=== PATIENT | male | born 1960 | race African-American/Black ===

== ENCOUNTER 2016-12-07 09:03 | Inpatient (IN) ==
--- NOTE | 2016-12-07 09:45 | PROVIDER DOCUMENTATION ---
HPI-General Adult - General Chief Complaint: Flank Pain Stated Complaint: BILA SIDE PAIN,HIGH BLOOD SUGAR Time Seen by Provider: 12/07/16 09:28 Source: patient Allergies/Adverse Reactions: Patient Allergies Allergy/AdvReac Type Severity Reaction Status Date / Time No Known Allergies Allergy Verified 12/07/16 10:06 Home Medications: Home Medication List Medication Instructions Recorded Confirmed Last Taken Type Amlodipine Besylate [Norvasc] 5 mg PO DAILY 12/07/16 12/07/16 12/07/16 08:00 History Insulin Glargine [Lantus] 100 unit SQ DAILY 12/07/16 12/07/16 12/05/16 08:00 History LISINOpril [Prinivil] 40 mg PO DAILY 12/07/16 12/07/16 12/07/16 08:00 History Metformin [Glucophage] 500 mg PO DAILY 12/07/16 12/07/16 12/07/16 08:00 History - History of Present Illness -Gen Adult Nature of Presenting Problems: Patient is a 56 y/o M that presents to the ER with bilateral flank pain, chest pain, and elevated blood sugar x 2 months. patient reports symptoms getting worse. denies n/v/d, fever/chills, or cough. patient denies also shortness of breath or dizziness but has had generalized weakness Location of Pain/Injury: reports: upper body Pain Radiation: reports: no radiation Quality of Pain: reports: dull Severity: reports: mild Onset/Duration: reports: gradual, other (2 months) Timing: reports: still present, constant Context/Activities at Onset: reports: none Modifying Factors: improves with: nothing Associated Symptoms: reports: chest pain. denies: back/neck pain, diarrhea, dizziness, fever/chills, genitourinary problems, nausea, shortness of breath, vomiting Similar Symptoms Previously?: No Recently seen or treated by another doctor?: No Review of Systems - Adult - REVIEW OF SYSTEMS - ADULT Constitutional: denies: chills, fever Eyes: denies: decreased vision, blurred vision, double vision Ears, Nose, Mouth & Throat: denies: ear discharge, ear pain, epistaxis, sinus problem, throat pain Cardiovascular: reports: chest pain. denies: palpitations, syncope Respiratory: denies: cough, shortness of breath, wheezing Gastrointestinal: reports: abdominal pain. denies: diarrhea, nausea, vomiting Genitourinary: reports: flank pain. denies: dysuria, frequency Musculoskeletal: reports: muscle weakness. denies: joint pain, joint swelling Integumentary: reports: no symptoms reported Neurological: reports: no symptoms reported Psychiatric: reports: no symptoms reported Endocrine: reports: no symptoms reported Hematologic/Lymphatic: reports: no symptoms reported Allergic/Immunologic: reports: no symptoms reported All Other Systems: Reviewed and Negative Past History - Adult - PAST MEDICAL HISTORY-ADULT Review of Records: reports: Nursing Assessment Review, Medications Reviewed Cardiovascular: reports: HTN Neurological: reports: Seizures/Epilepsy Endocrine/Immune: reports: Diabetes - PRIOR SURGERIES/PROCEDURES Surgical/Procedure History: reports: cholecystectomy, other (stent placed in pancrease in february 2014) - IMMUNIZATION STATUS Childhood Immunizations: See Nurse Assessment Flu Vaccine: See Nurse Assessment - FAMILY HISTORY Family History: reviewed, not pertinent - SOCIAL HISTORY Smoking: cigarettes, less than 1 pack/day Substance Use: marijuana Living Situation: family Physical Exam-General - PHYSICAL EXAM-ADULT Initial Vital Signs Reviewed: Yes - CONSTITUTIONAL General Appearance: alert, no apparent distress - EYES Eyes: PERRL/EOMI, pink conjunctivae - HEAD, EARS, NOSE, MOUTH & THROAT HENMT: normocephalic/atraumatic, moist mucous membranes, normal ENT inspection - NECK Neck: full range of motion, normal inspection - RESPIRATORY Respiratory: lungs clear, normal breath sounds, no respiratory distress, no accessory muscle use - CARDIOVASCULAR Cardiovascular: regular rate, rhythm, no edema, no JVD - GASTROINTESTINAL (ABDOMEN) Abdominal Exam: normal bowel sounds, non tender, soft, no organomegaly, no pulsatile mass - MUSCULOSKELETAL Back Exam: no CVA tenderness, no vertebral tenderness Extremity: normal range of motion, normal inspection, no pedal edema, no calf tenderness - SKIN Integumentary: normal color, warm/dry - NEUROLOGIC Neurologic: grossly normal, no motor/sensory deficits - PSYCHIATRIC Psych/Mental Status: normal mood/affect, normal thought content, normal thought process, oriented x 3 Progress - PLAN OF CARE/RESULTS Progress/Plan/Lab Results: plan of care-labs, ekg Vital Signs Temp Pulse Resp BP Pulse Ox 12/07/16 09:05 97.7 F 99 H 20 157/102 100 No Known Allergies Allergy (Verified 12/07/16 10:06) Amlodipine Besylate [Norvasc] 5 mg PO DAILY 12/07/16 Insulin Glargine [Lantus] 100 unit SQ DAILY 12/07/16 LISINOpril [Prinivil] 40 mg PO DAILY 12/07/16 Metformin [Glucophage] 500 mg PO DAILY 12/07/16 Dietary Diet NPO Start Noreen Dec 07 928 I&O 12/06/16 12/07/16 12/08/16 06:59 06:59 06:59 Output Total 50 Balance -50 Laboratory 12/07/16 12/07/16 12/07/16 10:09 10:09 10:09 WBC 7.70 RBC 3.69 L Hgb 10.8 L Hct 30.6 L MCV 82.9 MCH 29.3 MCHC 35.3 RDW Std Deviation 12.2 Plt Count 188 MPV 11.6 H Immature Gran % (Auto) 0.0 Neut % (Auto) 72.5 Lymph % (Auto) 20.5 Bladen % (Auto) 5.8 Eos % (Auto) 0.9 Baso % (Auto) 0.3 Immature Gran # (Auto) 0.00 Neut # (Auto) 5.58 Lymph # (Auto) 1.58 Bladen # (Auto) 0.45 Eos # (Auto) 0.07 Baso # (Auto) 0.02 Sodium 130 L Potassium 4.3 Chloride 92 L Carbon Dioxide 17 L Anion Gap 21 BUN 16 Creatinine 0.8 Estimated GFR/1.73 m2 > 60 BUN/Creatinine Ratio 20 Glucose 592 H* Calculated Osmolality 289 Calcium 9.5 Total Bilirubin 0.23 AST 16 ALT 14 Alkaline Phosphatase 71 Total Protein 7.2 Albumin 3.6 Globulin 3.6 Albumin/Globulin Ratio 1.0 Amylase 169 Lipase 561 H Urine Source Urine Color Urine Clarity Urine pH Ur Specific [place] Urine Protein Urine Ketones Urine Blood Urine Nitrite Urine Bilirubin Urine Urobilinogen Urine Microscopic RBC Urine WBC Urine Microscopic WBC Ur Epithelial Cells Urine Bacteria Urine Glucose Plasma/Serum Ethyl Alc 12/07/16 09:39 WBC RBC Hgb Hct MCV MCH MCHC RDW Std Deviation Plt Count MPV Immature Gran % (Auto) Neut % (Auto) Lymph % (Auto) Bladen % (Auto) Eos % (Auto) Baso % (Auto) Immature Gran # (Auto) Neut # (Auto) Lymph # (Auto) Bladen # (Auto) Eos # (Auto) Baso # (Auto) Sodium Potassium Chloride Carbon Dioxide Anion Gap BUN Creatinine Estimated GFR/1.73 m2 BUN/Creatinine Ratio Glucose Calculated Osmolality Calcium Total Bilirubin AST ALT Alkaline Phosphatase Total Protein Albumin Globulin Albumin/Globulin Ratio Amylase Lipase Urine Source CLEAN CATCH Urine Color STRAW Urine Clarity CLEAR Urine pH 5.5 Ur Specific [place] 1.010 Urine Protein 100 A Urine Ketones 15 A Urine Blood MODERATE A Urine Nitrite NEGATIVE Urine Bilirubin NEGATIVE Urine Urobilinogen 0.2 Urine Microscopic RBC 10-20 A Urine WBC NEGATIVE Urine Microscopic WBC <10 Ur Epithelial Cells <10 Urine Bacteria 1+ Urine Glucose >=1000 A Plasma/Serum Ethyl Alc Orders Category Date Time Status FSBS [Finger Stick Blood Sugar (ED)] DIRECTED Care 12/07/16 12:40 Active Saline Loc DIRECTED Care 12/07/16 09:29 Active NPO Diet 12/07/16 09:29 Active AMYLASE [CHEM] Stat Lab 12/07/16 10:09 Completed CBC WITH ELECTRONIC DIFF [HEME] Stat Lab 12/07/16 10:09 Completed COMPREHENSIVE METABOLIC PANEL [CHEM] Stat Lab 12/07/16 10:09 Completed ETOH [ALCOHOL BLOOD] Stat Lab 12/07/16 10:09 Completed LIPASE [CHEM] Stat Lab 12/07/16 10:09 Completed URINE CULTURE [RM] Routine Lab 12/07/16 10:42 Received 0.9% Sodium Chloride Inj [Ns] 1,000 ml Med 12/07/16 11:43 Discontinued IV 999 mls/hr Insulin Human Regular [Humulin R] Med 12/07/16 11:43 Discontinued 10 unit IV NOW ONE - CONSULTS/PCP/HOSPITALIST Notification #1 *Consult/PCP/Hospitalist*: (hospitalist) Time Discussed: 12:50 Consult Disposition: Will see in ED, Admit Departure - Departure Time of Disposition Order: 12:50 DIAGNOSIS: Poorly controlled diabetes mellitus, Hyperglycemia, Pancreatitis Disposition: ADMITTED INPATIENT 09 Certified Medical Emergency: Emergent Condition: Stable - Critical Care Note Total Time (mins): 40 Critical Care Statement: This patient required my direct personal management to treat or rule out processes, the absence of which, could potentiallly result in sudden, clinically significant life or limb threatening deterioration. Attestation - Scribe Verification/Attestation Scribe:: Delfino Bess Acting as Scribe for:: Smiley Gary Scribe documention review:: This chart was documented by a scribe and accurately reflects the service the provider performed and the decisions made by the provider. Physician Attestation - Physician Attestation I, the provider, attest to the following statement:: Smiley Gary Physician documentation Attestation:: This documentation recorded by the scribe accurately reflects the service I personally performed and the decisions made by me.
[2016-12-07 10:02] LABS: URINE SOURCE CLEAN CATCH
[2016-12-07 10:31] LABS: MANUAL DIFF NEEDED? NO
[2016-12-07 10:33] LABS: URINE EPITHELIAL CELLS <10 /HPF (<10); URINE WBC <10 /HPF (<10)
[2016-12-07 10:41] LABS: BILIRUBIN URINE NEGATIVE (NEGATIVE); BLOOD URINE MODERATE (NEGATIVE); CLARITY CLEAR (CLEAR); COLOR STRAW; GLUCOSE URINE >=1000 mg/dL (NEGATIVE); LEUKOCYTES URINE NEGATIVE (NEGATIVE); NITRITE URINE NEGATIVE (NEGATIVE); PH URINE 5.5; PROTEIN URINE 100 mg/dL (NEGATIVE); URINE CULTURE NEEDED? YES; UROBILINOGEN URINE 0.2 EU/dL (0.2-1.0)
[2016-12-07 10:50] LABS: BASO% 0.3 % (0.0-0.8); EOS# 0.07 X1000 (0.0-0.7); EOS% 0.9 % (0.0-10.0); HEMATOCRIT 30.6 % (42.0-52.0); HEMOGLOBIN 10.8 g/dL (14.0-18.0); LYMPH# 1.58 X1000 (1.2-3.4); LYMPH% 20.5 % (20.5-51.1); MCH 29.3 PG (27-31); MCHC 35.3 g/dL (33-37); MCV 82.9 FL (81-99); MONO# 0.45 X1000 (0.11-0.59); MONO% 5.8 % (1.7-9.3); MPV 11.6 FL (7.4-10.4); NEUT% 72.5 % (42.2-75.2); PLT 188 X1000 (130-400); RBC 3.69 XMIL (4.7-6.1)
[2016-12-07 11:18] LABS: AGAP 21; ALBUMIN 3.6 g/dL (3.5-5.0); ALKALINE PHOSPHATASE 71 U/L (32-122); AMYLASE 169 U/L (20-200); BUN 16 mg/dL (8-22); CALCIUM 9.5 mg/dL (8.8-10.2); CHLORIDE 92 mmol/L (98-107); COSMO 289; GOT 16 U/L (10-34); GPT 14 U/L (10-44); POTASSIUM 4.3 mmol/L (3.5-5.1); SODIUM 130 mmol/L (136-145); TCO2 17 mmol/L (25-35); TOTAL BILIRUBIN 0.23 mg/dL (0.20-1.00); TOTAL PROTEIN 7.2 g/dL (6.3-8.3)
[2016-12-07 11:23] LABS: LIPASE 561 U/L (13-60)
[2016-12-07] MEDS ORDERED: HUMULIN R IV ONE (11:43)
[2016-12-07] MEDS ORDERED: NS 1,000 ML IV ONE (11:43)
[2016-12-07] MEDS ORDERED: ATIVAN IV PRN (13:40)
--- NOTE | 2016-12-07 14:24 | Diag Imaging Result Document ---
PROCEDURE NAME: CHEST-2 VIEWS - 12/07/2016 TWO VIEWS THE CHEST: FINDINGS: There is no evidence of acute cardiac or pulmonary disease. Compared to 01/16/2016, there has been no significant change in the appearance of the chest. IMPRESSION: No acute disease.
--- NOTE | 2016-12-07 14:35 | HISTORY AND PHYSICAL ---
CHIEF COMPLAINT: Abdominal pain. HISTORY OF PRESENT ILLNESS: Mr. Singh is a 56-year-old male with a history of alcohol dependence, hypertension, alcohol withdrawal seizures in the past, uncontrolled diabetes, marijuana dependence, who presents to the ER today with 2-3 months of abdominal pain, which has been worsening over the past few days. Mr. Singh is a fairly poor historian and is unable to give a precise history; however, he states that over the past few months he has been hurting and over the past few days he has had severe enough pain to come to the ER. He describes the pain as left upper quadrant and sharp in nature, radiating to the right side of his abdomen. It is not associated with spontaneous nausea and vomiting, but any time he tries to the eat he throws up. He reports drinking 4 tall boy beers a day. His states that his last drink was around a week ago. He denies any fever, chills, cough or congestion, no lower extremity edema, no orthopnea. He came to the ER today for evaluation. His lipase was noted to be 561. The rest of his labs were largely unremarkable with the exception of blood sugar of 592 with an elevated anion gap and acidemia. We are currently evaluating for DKA; however, he is hemodynamically stable at this time. He is now going to be admitted for further treatment and evaluation of alcoholic pancreatitis. PAST MEDICAL HISTORY: 1. Alcohol dependence. 2. Marijuana dependence. 3. Hypertension. 4. Poorly controlled diabetes. 5. Medical noncompliance. PAST SURGICAL HISTORY: He has had a cholecystectomy and pancreatic duct stent in the past. SOCIAL HISTORY: Patient is single. He has 1 daughter. He lives with his brother. He drinks 4 beers a day. He smokes marijuana, exact amount unknown. FAMILY HISTORY: Noncontributory. REVIEW OF SYSTEMS: Ten point review of systems obtained and found to be negative with the exception of the HPI. HOME MEDICATIONS: Norvasc 5 mg daily, Lantus 100 units subcu daily, Prinivil 40 mg daily, metformin 500 mg p.o. daily. ALLERGIES: No known drug allergies. PHYSICAL EXAMINATION: VITAL SIGNS: Blood pressure is 157/102, heart rate 99, respiratory rate 20, O2 saturation 100% on room air. Temperature is 97.7 degrees. GENERAL: This is a chronically ill and disheveled appearing 56-year-old male, lying in hospital bed. No acute distress. NEUROLOGIC: The patient is awake, alert, and oriented. He follows commands without focal deficits. HEENT: Head is atraumatic, normocephalic. His pupils are equal, round, reactive to light. Oral mucosa is dry. Trachea is midline. CHEST: Clear to auscultation bilaterally. CV: Regular rate and rhythm. S1-S2 is noted. GASTROINTESTINAL: Left upper quadrant tenderness to palpation. The belly is overall soft, nondistended, hypoactive bowel sounds. EXTREMITIES: Diminished pulses. No edema, clubbing or cyanosis. DIAGNOSTIC DATA: WBC 7.7, hemoglobin 10.8, hematocrit 30.6, platelet count 188,000. Sodium 130, potassium 4.3, chloride 92, CO2 17, anion gap 21, BUN 16, creatinine 0.8, glucose 592. LFTs within normal limits. Lipase 561. UA is negative for urinary tract infection, but there is greater than 1000 glucose and 15 ketones. Alcohol level was 0. ASSESSMENT AND PLAN: 1. Alcoholic pancreatitis: Patient will be admitted to the floor with telemetry. We will keep him NPO and be aggressive with IV fluid hydration. We will check a lipid panel and a CT of the abdomen and pelvis. Add IV pain medication and trend his lipase on a daily basis. 2. Hyperglycemia, rule out diabetic ketoacidosis: When the patient arrived and had labs at 10 o'clock this morning, he was acidemic with an elevated anion gap and a glucose of 592. The assessment could be made of DKA; however, he has had have fluid resuscitation since then, so we will get an ABG now to rule out his acid-base balance and check a BMP in a few hours. He has been given IV insulin in the ER. We will add pattern sugars and sliding scale insulin for now, check a hemoglobin A1c and monitor. 3. Anemia: Likely chronic, we are checking thyroid function and iron studies. We will treat accordingly. 4. Hypertension: His medications are on hold. We will add IV p.r.n.'s if needed. 5. Alcohol dependence/withdrawal syndrome: We will add a banana bag and p.r.n. Ativan as needed and monitor for DTs closely. 6. Polysubstance dependence: Patient has been highly advised to quit drinking alcohol and using marijuana, and we are going to check a drug screen, continue daily cessation counseling. 7. We will add b.i.d. Protonix for gastrointestinal prophylaxis and for likely gastritis associated with the pancreatitis and Lovenox for DVT prophylaxis. 8. Further recommendations to follow. Dictated by SAIDA Rodriguez for Troy Cleary MD
[2016-12-07 14:36] LABS: HEMOGLOBIN A1C 14.8 % (4.8-6.0)
[2016-12-07] MEDS ORDERED: APRESOLINE IV PRN (14:53)
--- NOTE | 2016-12-07 15:07 | Diag Imaging Result Document ---
PROCEDURE NAME: CT ABD/PELVIS W/ IV CONT ONLY - 12/07/2016 CT ABDOMEN AND PELVIS WITH IV CONTRAST: COMPARISON: 01/11/2016. FINDINGS: There are scattered calcified granulomata throughout the spleen. There has been a previous cholecystectomy. There are several calcifications mainly at the pancreatic head suggesting chronic pancreatitis. The pancreatic duct is also somewhat dilated. There appears to be a stent in the distalmost common bile duct extending from about the level of the ampulla distally into the duodenum. However, it is in stable position. There is perhaps very subtle stranding around the head of the pancreas. This could represent a component of acute pancreatitis. However, it is very mild if so. The appendix is normal. The kidneys appear normal. The urinary bladder is unremarkable. The remainder of the solid viscera of the abdomen and pelvis and the remainder of the GI tract is essentially unremarkable. No definite focal inflammatory change, free abdominal gas, or free fluid is identified. IMPRESSION: 1. Multiple calcifications in the pancreatic head compatible with chronic pancreatitis. 2. Very questionable and subtle stranding around the head of the pancreas. I suppose this could represent a component of mild acute pancreatitis. Please correlate clinically. 3. Other incidental/nonacute findings detailed above that are essentially stable.
[2016-12-07 15:31] LABS: ALLEN TEST YES; BE -7.2 mmoll (-3.0-3.0); BLOOD TYPE ARTERIAL; DRAW SITE R RADIAL; METHB 1.7 % (0.0-1.5); PCO2(98.6) 34 mmHg (35-45); PO2(98.6) 98 mmHg (60-100); SAMPLE BLOOD; SAO2 99.3 % (95.0-100.0); THB 11.1 g/dL (11.5-17.4); pH(98.6) 7.33 (7.35-7.45)
[2016-12-07 15:35] LABS: MODALITY ROOM AIR
[2016-12-07 15:46] LABS: UR AMPHETAMINES QUAL NONE DETECTED (NONE DETECT); UR BARBITUATES QUAL NONE DETECTED (NONE DETECT); UR BENZODIAZEPIN QUAL NONE DETECTED (NONE DETECT); UR CANNABINOIDS QUAL PRESUMPTIVE POSITIVE (NONE DETECT); UR COCAINE QUAL NONE DETECTED (NONE DETECT); UR METHADONE QUAL NONE DETECTED (NONE DETECT); UR OPIATES QUAL NONE DETECTED (NONE DETECT); UR OXYCODONE QUAL NONE DETECTED (NONE DETECT); UR PCP QUAL NONE DETECTED (NONE DETECT)
[2016-12-07] MEDS ORDERED: FLUZONE QUAD 2016-2017 SYRINGE IM ONE (16:00)
[2016-12-07 16:28] LABS: AGAP 19; BUN 15 mg/dL (8-22); CALCIUM 9.5 mg/dL (8.8-10.2); CHLORIDE 100 mmol/L (98-107); COSMO 284; POTASSIUM 3.8 mmol/L (3.5-5.1); SODIUM 136 mmol/L (136-145); TCO2 17 mmol/L (25-35)
[2016-12-07 16:31] LABS: HDL 53 mg/dL (35-55); LDL 76 mg/dL; TRIGLYCERIDES 176 mg/dL (39-160); VLDL 35 mg/dL
[2016-12-07] MEDS: PROTONIX IV SCH (16:55)
[2016-12-07] MEDS: M.V.I.-12 10 ML, FOLIC ACID 1 MG, MAGNESIUM SULFATE 1 GM, THIAMINE 100 MG in NS 1,000 ML IV SCH (16:55)
[2016-12-07] MEDS: SODIUM CHLORIDE 0.9% INJ SCH (16:55)
[2016-12-07] MEDS: NS 1,000 ML IV SCH (17:05)
[2016-12-07] MEDS: MORPHINE IV PRN ×2 (18:31→23:02)
[2016-12-07] MEDS: HUMALOG SUBQ SCH ×2 (18:37→23:51)
[2016-12-08] MEDS: NS 1,000 ML IV SCH ×3 (01:52→08:48)
[2016-12-08] MEDS: SODIUM CHLORIDE 0.9% INJ SCH ×2 (01:55→13:44)
[2016-12-08] MEDS: PROTONIX IV SCH ×2 (01:55→13:44)
[2016-12-08 06:15] LABS: IRON SATURATION 23 %; TIBC 203 ug/dL
[2016-12-08 06:19] LABS: AGAP 21; BUN 12 mg/dL (8-22); CHLORIDE 104 mmol/L (98-107); COSMO 283; LIPASE 153 U/L (13-60); SODIUM 140 mmol/L (136-145); TCO2 15 mmol/L (25-35); TOTAL IRON 46 ug/dL (53-167); UNBOUND IRON 157 ug/dL (112-346)
[2016-12-08] MEDS: HUMALOG SUBQ SCH ×4 (06:36→20:09)
[2016-12-08 06:38] LABS: FERRITIN 1302 ng/mL (30-400)
[2016-12-08] MEDS: MORPHINE IV PRN ×2 (08:14→18:44)
[2016-12-08] MEDS: LOVENOX SUBQ SCH (08:15)
[2016-12-08] MEDS ORDERED: SODIUM BICARBONATE 8.4% IV ONE (10:09)
[2016-12-08] MEDS: 1/2 NS 1,000 ML IV SCH (11:22)
[2016-12-08] MEDS: M.V.I.-12 10 ML, FOLIC ACID 1 MG, MAGNESIUM SULFATE 1 GM, THIAMINE 100 MG in NS 1,000 ML IV SCH ×2 (13:55→15:55)
--- NOTE | 2016-12-08 16:22 | PROGRESS NOTE ---
DATE: 12/08/2016 SUBJECTIVE: This patient states that he is feeling much better, he is not complaining of belly pain at this moment. He is hungry and thirsty, I will put this patient on a clear liquid diet. I will also stop the normal saline and I will put this patient on half NS. OBJECTIVE: Vital Signs: Temperature 98.6, pulse 103, respiratory rate 20, blood pressure 120/77, oxygen saturation 100% on room air. HEENT: Head normocephalic. No trauma. PERRLA. Neck: Supple. No JVD. No masses. Central trachea. Chest: Clear to auscultation. No wheezing. No rales. Abdomen: Soft, nontender, nondistended. No hepatosplenomegaly. Cardiovascular: RRR. No murmurs. Tachycardic. Extremities: No edema. No clubbing. No cyanosis. Neurological: The patient is alert and oriented x3. No focal deficits. LABORATORY: Sodium 140, potassium 4, chloride 104, bicarbonate 15, BUN 12, creatinine 0.7, glucose 168, calcium 9. Lipase 153. ASSESSMENT AND PLAN: 1. Alcoholic pancreatitis. This patient is feeling better. I will put this patient on clear liquid diet and I will switch the hydration from normal saline to half normal saline. Lipase is much better today. We will continue to monitor. 2. Type 2 diabetes. The blood sugar is better controlled. Continue to monitor. At the moment of the admission, this patient was acidotic. This patient is still acidotic. I will start him on a diet and also I will give him a dose of bicarbonate. I will ask also for a BMP. He is not complaining of any pain or having any kind of symptoms at this moment. 3. Anemia, likely chronic. Likely secondary to alcohol abuse. 4. Hypertension. His blood pressure is controlled. We will continue with the same medications and p.r.n. if needed. 5. Alcohol dependence/withdrawal syndrome. This patient has p.r.n. Ativan and we will monitor this patient for DTs closely. 6. Polysubstance dependence. Patient has been highly advised against drinking alcohol and using marijuana. Continue with daily cessation education. 7. Gastrointestinal prophylaxis. Continue with proton pump inhibitors and deep vein thrombosis prophylaxis. Continue with Lovenox.
[2016-12-08 16:53] LABS: AGAP 16; BUN 9 mg/dL (8-22); CALCIUM 8.4 mg/dL (8.8-10.2); CHLORIDE 100 mmol/L (98-107); COSMO 269; POTASSIUM 3.6 mmol/L (3.5-5.1); SODIUM 133 mmol/L (136-145); TCO2 17 mmol/L (25-35)
[2016-12-09] MEDS: 1/2 NS 1,000 ML IV SCH ×5 (04:23→23:23)
[2016-12-09] MEDS: MORPHINE IV PRN ×4 (04:23→20:46)
[2016-12-09 06:18] LABS: MANUAL DIFF NEEDED? NO
[2016-12-09] MEDS: SODIUM CHLORIDE 0.9% INJ SCH (06:22)
[2016-12-09] MEDS: HUMALOG SUBQ SCH ×4 (06:22→20:38)
[2016-12-09] MEDS: PROTONIX IV SCH ×2 (06:22→18:43)
[2016-12-09 06:40] LABS: BASO% 0.1 % (0.0-0.8); EOS# 0.06 X1000 (0.0-0.7); EOS% 0.8 % (0.0-10.0); HEMATOCRIT 26.8 % (42.0-52.0); HEMOGLOBIN 9.4 g/dL (14.0-18.0); IMM GRAN# 0.02 X1000 (0.0-0.04); IMM GRAN% 0.3 % (0.0-0.5); LYMPH# 0.79 X1000 (1.2-3.4); LYMPH% 11.1 % (20.5-51.1); MCH 29.3 PG (27-31); MCHC 35.1 g/dL (33-37); MCV 83.5 FL (81-99); MONO# 0.71 X1000 (0.11-0.59); MPV 11.2 FL (7.4-10.4); NEUT% 77.7 % (42.2-75.2); PLT 116 X1000 (130-400); RBC 3.21 XMIL (4.7-6.1)
[2016-12-09 06:45] LABS: AGAP 14; BUN 7 mg/dL (8-22); CALCIUM 7.9 mg/dL (8.8-10.2); CHLORIDE 102 mmol/L (98-107); COSMO 270; LIPASE 34 U/L (13-60); POTASSIUM 3.4 mmol/L (3.5-5.1); SODIUM 134 mmol/L (136-145); TCO2 18 mmol/L (25-35)
[2016-12-09] MEDS ORDERED: KLOR-CON PO ONE (08:17)
[2016-12-09] MEDS: LOVENOX SUBQ SCH (09:16)
[2016-12-09] MEDS: VITAMIN B-1 PO SCH (10:37)
[2016-12-09] MEDS: LANTUS SUBQ SCH (10:38)
[2016-12-09] MEDS ORDERED: NS 500 ML ONE (11:41)
--- NOTE | 2016-12-09 12:12 | PROGRESS NOTE ---
DATE: 12/09/2016 SUBJECTIVE: This patient states that he is feeling much better. He is not complaining of belly pain at this moment. He is tolerating p.o. The blood sugar is uncontrolled. I will put this patient on Lantus 25 units today and we will continue to monitor the blood sugar. Also I will stop the banana bag and I will put this patient on thiamine daily. The urine culture showed yeast. I will repeat that. OBJECTIVE: Vital Signs: Temperature 99.8 degrees, pulse 100, respiratory rate 18, blood pressure 148/89, O2 saturation 100% on room air. HEENT: Head normocephalic. No trauma. PERRLA. Neck: Supple. No JVD. No masses. Central trachea. Chest: Clear to auscultation. No wheezing. No rales. Abdomen: Soft, nontender, nondistended. No hepatosplenomegaly. Cardiovascular: RRR. No murmurs. Tachycardic. Extremities: No edema. No clubbing. No cyanosis. Neurological: The patient is alert and oriented x3. No focal deficits. LABORATORY: WBC 7.1, hemoglobin 9.4, hematocrit 26.8, platelets 116,000. Sodium 134, potassium 3.4, chloride 102, bicarbonate 18. BUN 7, creatinine 0.5. Glucose 175. Calcium 7.9 Magnesium 2.1. ASSESSMENT AND PLAN: 1. Alcoholic pancreatitis resolved, this patient is getting better and he is tolerating diet, we will continue with fluids and pain control. 2. Uncontrolled diabetes. This patient had more than 25 units of sliding scale yesterday. I will put this patient on his home medication Lantus 25 daily and I will monitor. The metabolic acidosis is getting much better. 3. Anemia, likely chronic and secondary to alcohol abuse. 4. Hypertension. The blood pressure is controlled. We will continue with the same medications. 5. Alcohol dependence, withdrawal syndrome. This patient has p.r.n. Ativan. We will monitor closely for DTs. I will put this patient also on thiamine. 6. Urine culture that showed yeast. I will repeat this. Probably this is contamination. 7. Polysubstance dependence. Patient has been highly advised against drinking alcohol and using marijuana. Continue with daily cessation education. 8. GI prophylaxis. Continue with PPI. 9. DVT prophylaxis. Continue with Lovenox.
[2016-12-10] MEDS: MORPHINE IV PRN (00:55)
[2016-12-10] MEDS: 1/2 NS 1,000 ML IV SCH (05:26)
[2016-12-10] MEDS: SODIUM CHLORIDE 0.9% INJ SCH (05:26)
[2016-12-10] MEDS: PROTONIX IV SCH (05:26)
[2016-12-10 06:25] LABS: BASO% 0.2 % (0.0-0.8); EOS# 0.06 X1000 (0.0-0.7); HEMOGLOBIN 10.6 g/dL (14.0-18.0); IMM GRAN# 0.02 X1000 (0.0-0.04); IMM GRAN% 0.3 % (0.0-0.5); LYMPH# 0.43 X1000 (1.2-3.4); LYMPH% 6.9 % (20.5-51.1); MANUAL DIFF NEEDED? YES; MCH 29.3 PG (27-31); MCHC 35.3 g/dL (33-37); MCV 82.9 FL (81-99); MONO# 0.41 X1000 (0.11-0.59); MONO% 6.5 % (1.7-9.3); MPV 11.5 FL (7.4-10.4); NEUT% 85.1 % (42.2-75.2); PLT 125 X1000 (130-400); RBC 3.62 XMIL (4.7-6.1)
[2016-12-10] MEDS ORDERED: INSULIN PEN NEEDLES ONE (06:25)
[2016-12-10 06:43] LABS: AGAP 13; BUN 8 mg/dL (8-22); CALCIUM 8.1 mg/dL (8.8-10.2); CHLORIDE 101 mmol/L (98-107); COSMO 266; LIPASE 27 U/L (13-60); POTASSIUM 3.9 mmol/L (3.5-5.1); SODIUM 132 mmol/L (136-145); TCO2 18 mmol/L (25-35)
[2016-12-10] MEDS: HUMALOG SUBQ SCH (06:46)
[2016-12-10 07:29] LABS: LYMPHS 7 % (21-51); MONO 6 % (1-9)
[2016-12-10 07:54] VITALS: BP 146/84
[2016-12-10] MEDS ORDERED: NS IV ONE (08:05)
[2016-12-10] MEDS ORDERED: POTASSIUM PHOSPHATE IV ONE (08:05)
[2016-12-10] MEDS ORDERED: NS 1,000 ML IV SCH (08:15)
[2016-12-10] MEDS: LANTUS SUBQ SCH (10:16)
[2016-12-10] MEDS: VITAMIN B-1 PO SCH (10:16)
[2016-12-10] MEDS: LOVENOX SUBQ SCH (10:16)
--- NOTE | 2016-12-11 17:20 | DISCHARGE SUMMARY ---
ADMISSION DATE: 12/07/2016 DISCHARGE DATE: 12/10/2016 SUBJECTIVE: This patient looks better today but he wants to go home, he has been having low grade fever and I told him to stay just 1 more day to do some more studies but he refuses and he decided to leave [facility]. OBJECTIVE: Vital Signs: Temperature 100.9 degrees, pulse 107, respiratory rate 18, blood pressure 146/82, O2 saturation 100% on room air. HEENT: Head normocephalic. No trauma. PERRLA. Neck: Supple. No JVD. No masses. Central trachea. Chest: Clear to auscultation. No wheezing. No rales. Abdomen: Soft, nontender, nondistended. No hepatosplenomegaly. Cardiovascular: RRR. No murmurs. Tachycardic. Extremities: No edema. No clubbing. No cyanosis. Neurological: The patient is alert and oriented x3. He looks anxious today. HOSPITAL COURSE: This patient was admitted on 12/07/2016 with the diagnosis of alcoholic pancreatitis. This patient is a 56 years old male with a history of alcohol dependence, hypertension, alcohol withdrawal seizure in the past and uncontrolled diabetes, marijuana dependence as well. He is a poor historian and he is unable to give a precise history. However he states that he has been having for the past few months epigastric pain and right upper quadrant pain, associated with vomiting mostly when he eat. At the moment of admission his blood sugar was 592 and he was on metabolic acidosis. He was evaluated because he presented with DKA but it was corrected at the emergency department with IV fluids. He was admitted to the floor with telemetry and he was improving on a daily basis. He started having low-grade fever and even though we did have any source of infection will continue to treat him with IV fluid and support medications. He decided to leave [place] today. He states that he will continue with his home medications.
== END 2016-12-10 10:36 | disposition left against medical advice (07) | DRG 439 ==
LOC: ED 09:03 → 4N 14:06
PROVIDERS: ATTEND Internal Medicine
DX: K86.0 Alcohol-induced chronic pancreatitis (principal); F10.239 Alcohol dependence with withdrawal, unspecified; E11.65 Type 2 diabetes mellitus with hyperglycemia; I10 Essential (primary) hypertension; F17.210 Nicotine dependence, cigarettes, uncomplicated; F12.20 Cannabis dependence, uncomplicated; D64.9 Anemia, unspecified; Z79.899 Other long term (current) drug therapy; Z79.4 Long term (current) use of insulin; Z79.84 Long term (current) use of oral hypoglycemic drugs; Z91.19 Patient's noncompliance with other medical treatment and regimen
CPT/HCPCS: 71020; 74177; 80048; 80053; 80061; 81001; 82009; 82150; 82607; 82728; 82746; 82805; 82948; 83036; 83540; 83550; 83690; 83735; 84100; 84439; 85025; 87088; C9113; G0480; J1650; J1815; J2060; J2270; J3411; J3475; J7030; J7040; Q9967; 80320; 80324; 80345; 80346; 80349; 80353; 80358; 80361; 80365; 83992; S0164

== ENCOUNTER 2016-12-24 20:29 | Inpatient (IN) ==
[2016-12-24] MEDS ORDERED: NS 1,000 ML IV ONE ×2 (20:33→22:41)
[2016-12-24] MEDS ORDERED: HUMULIN R IV ONE ×3 (20:33→22:41)
--- NOTE | 2016-12-24 20:40 | PROVIDER DOCUMENTATION ---
HPI-Neurological Disorder <Nila PerezKrystal - Last Filed: 12/24/16 21:00> - General Source: EMS <Rey Callahan - Last Filed: 12/24/16 22:27> - General Source: EMS - History of Present Illness-Neuro Onset/Duration: reports: just prior to arrival Timing: reports: still present Context: reports: impaired speech, falling Approximate time patient was last seen normal?: 19:37 Character of Altered Mental Status: reports: disoriented, confused, trouble concentrating Any recent trauma/injury?: reports: minor, other (lt knee) Character of Deficits: reports: decreased ability to stand, decreased ability to walk New weakness or altered sensation location:: reports: general (diffuse) Cognitive Baseline: alert, oriented x3 Associated Symptoms: reports: confusion, weakness. denies: short of breath Similar Symptoms Previously?: Yes Recently seen or treated by another doctor?: No <Declan New - Last Filed: 12/25/16 21:41> - General Stated Complaint: slurred speech Time Seen by Provider: 12/24/16 20:32 Allergies/Adverse Reactions: Patient Allergies Allergy/AdvReac Type Severity Reaction Status Date / Time No Known Allergies Allergy Verified 12/24/16 21:32 Home Medications: Home Medication List Medication Instructions Recorded Confirmed Last Taken Type Home Meds Unobtainable 12/24/16 12/24/16 Unknown History - History of Present Illness-Neuro Nature of Presenting Problem: family called 911 due pt became confuse w/hi bs ,,pt was in a chair and fell foeward w/ams ,no loc ,no seizures....pt on arrival having incoherent speech .. (Declan New) Review of Systems - Adult - REVIEW OF SYSTEMS - ADULT ROS:: unobtainable per condition Constitutional: reports: see HPI <Declan New - Last Filed: 12/25/16 21:41> Past History - Adult - PAST MEDICAL HISTORY-ADULT Review of Records: reports: Old Records Reviewed, Medications Reviewed Cardiovascular: reports: HTN Respiratory: reports: COPD Gastrointestinal: reports: GERD Neurological: reports: Seizures/Epilepsy Psychiatric: reports: anxiety Endocrine/Immune: reports: Diabetes - PRIOR SURGERIES/PROCEDURES Surgical/Procedure History: reports: cholecystectomy, other (stent placed in pancrease in february 2014) - IMMUNIZATION STATUS Childhood Immunizations: See Nurse Assessment Flu Vaccine: See Nurse Assessment - FAMILY HISTORY Family History: reviewed, not pertinent - SOCIAL HISTORY Provider spent 3-5 mins advising pt. on dangers of tobacco.: Discussed manners to quit use, and f/u contacts for add'l counseling. Substance Use: none presently/history of abuse Living Situation: family <ShaqDeclan Fraser - Last Filed: 12/25/16 21:41> Physical Exam- Neurological - Physical Exam-Neuro General Appearance: appears well, alert, mild distress, anxious (moderate-severe ), lethargic, slow to respond. negative: no apparent distress, obtunded, combative Head Injury: no evidence of injury Respiratory: respiratory distress (mild), rhonchi (bilateral), other (congestion ). negative: chest non-tender, lungs clear, normal breath sounds, wheezing Cardiovascular: normal peripheral pulses, tachycardia. negative: regular rate, rhythm Extremity: other (LUE jerking for approxiamtely 1 minute after return from CT.) . 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 negative: normal mood/affect, oriented x 3 - Glascow Coma Scale Total Glascow Score: 11 <Rey Callahan - Last Filed: 12/24/16 22:27> - Physical Exam-Neuro Initial Vital Signs Reviewed: Yes <ShaqDeclan Fraser - Last Filed: 12/25/16 21:41> Progress <Nila Perez - Last Filed: 12/24/16 21:00> - XRAY 1 XRAY: Bilateral XRAY Study: Chest Impression: See EMR Report XRAY Interpretation: No acute findings - CT/MRI 1 CT Study: Cervical Spine, Head Impression: See EMR Report CT Results: Negative - CONSULTS/PCP/HOSPITALIST Notification #1 *Consult/PCP/Hospitalist*: Dr. Norman (Hospitalist) Time Discussed: 22:28 Consult Disposition: Admit <Rey Callahan - Last Filed: 12/24/16 22:27> <Declan New M - Last Filed: 12/25/16 21:41> - PLAN OF CARE/RESULTS Progress/Plan/Lab Results: 2049: Pt actively seizing after CT scan and 6 mg of Ativan were given, pt vomited and suction was performed. Total seizure was approx. 8 minutes. ( Nila Perez) Pt was admitted on 12/07/2014 for similar symptoms. Pt has hx of alcoholism and alcoholic related health issues. Vital Signs - 24 hr 12/24/16 12/24/16 12/24/16 20:50 21:26 21:57 Temperature 97.9 F 97.9 F Pulse Rate 98 H 88 98 H Respiratory 16 20 20 Rate Blood Pressure 180/106 161/91 155/101 O2 Sat by Pulse 100 100 100 Oximetry 12/24/16 22:25 Temperature Pulse Rate 98 H Respiratory 15 Rate Blood Pressure 157/95 O2 Sat by Pulse 100 Oximetry Orders Category Date Time Status Cardiac Monitoring DIRECTED Care 12/24/16 20:32 Active Finger Stick Blood Sugar (ED) DIRECTED Care 12/24/16 20:32 Active Oxygen Therapy- ED Nursing DIRECTED Care 12/24/16 20:32 Active Saline Loc NOW Care 12/24/16 20:32 Active CHEST-PORTABLE [RAD] Stat Exams 12/24/16 20:31 Taken HEAD/C-SPINE W/O CONTRAST [CT] Stat Exams 12/24/16 20:31 Taken ABG [RESP] Routine Lab 12/24/16 22:15 Completed ALCOHOL BLOOD Stat Lab 12/24/16 21:21 Completed CBC WITH ELECTRONIC DIFF [HEME] Stat Lab 12/24/16 21:21 Completed CK PROFILE [SP CHEM] Stat Lab 12/24/16 21:21 Completed COMPREHENSIVE METABOLIC PANEL [CHEM] Stat Lab 12/24/16 21:21 Completed LACTATE, PLASMA [CHEM] Stat Lab 12/24/16 21:21 Completed PROTIME WITH INR [COAG] Stat Lab 12/24/16 21:21 Completed PTT [COAG] Stat Lab 12/24/16 21:21 Completed TROPONIN T Stat Lab 12/24/16 21:21 Completed URINALYSIS W/POSS RFLX CULT [URINALYSIS] Stat Lab 12/24/16 21:05 Completed URINE DRUG SCREEN Stat Lab 12/24/16 21:05 Completed 0.9% Sodium Chloride Inj [Ns] 1,000 ml Med 12/24/16 20:33 Discontinued IV 999 mls/hr Clonidine [Catapres] Med 12/24/16 22:26 Discontinued 0.1 mg PO NOW ONE Insulin Human Regular [Humulin R] Med 12/24/16 20:33 Discontinued 15 unit IV NOW ONE Insulin Human Regular [Humulin R] Med 12/24/16 22:26 Discontinued 15 unit IV NOW ONE Lorazepam [Ativan] Med 12/24/16 20:42 Discontinued 2 mg .ROUTE .STK-MED ONE Lorazepam [Ativan] Med 12/24/16 20:51 Discontinued 2 mg .ROUTE .STK-MED ONE Lorazepam [Ativan] Med 12/24/16 21:35 Discontinued 2 mg IV NOW ONE Lorazepam [Ativan] Med 12/24/16 21:36 Discontinued 2 mg IV NOW ONE Lorazepam [Ativan] Med 12/24/16 21:36 Discontinued 2 mg IV NOW ONE Mvi [M.v.i.-12] 10 ml Med 12/24/16 22:25 Active Folic Acid 1 mg Magnesium Sulfate 1 gm Thiamine 100 mg 0.9% Sodium Chloride Inj [Ns] 1,000 ml IV NOW Pulse Oximetry Stat Oth 12/24/16 20:32 Active EKG [EKG] Stat Ther 12/24/16 20:31 Ordered EKG [EKG] Stat Ther 12/24/16 20:32 Ordered Laboratory Tests 12/24/16 12/24/16 12/24/16 21:05 21:05 21:21 WBC RBC Hgb Hct MCV MCH MCHC RDW Std Deviation Plt Count MPV Immature Gran % (Auto) Neut % (Auto) Lymph % (Auto) [place] % (Auto) Eos % (Auto) Baso % (Auto) Immature Gran # (Auto) Neut # (Auto) Lymph # (Auto) [place] # (Auto) Eos # (Auto) Baso # (Auto) PT INR PTT (Actin FS) Specimen Type Sample Site pH pCO2 pO2 HCO3 Base Excess Oxyhemoglobin ABG O2 Sat (Calculated) ABG O2 Saturation ABG Carboxyhemoglobin ABG Methemoglobin Viktor Test A-a O2 Difference Total Hemoglobin Lactate Liter Flow Blood Gas Modality FiO2 % Sodium Potassium Chloride Carbon Dioxide Anion Gap BUN Creatinine Estimated GFR/1.73 m2 BUN/Creatinine Ratio Glucose Calculated Osmolality Calcium Total Bilirubin AST ALT Alkaline Phosphatase Creatine Kinase Troponin T Total Protein Albumin Globulin Albumin/Globulin Ratio Plasma Lactate Urine Source CATH Urine Color STRAW Urine Turbidity CLEAR Urine pH 6.0 Ur Specific [place] 1.025 Urine Protein 70 A Ur Glucose (Stick) >1000 A Ur Ketones (Stick) NEGATIVE Urine Blood TRACE A Urine Nitrite NEGATIVE Urine Bilirubin NEGATIVE Urobilinogen Dipstick NORMAL Urine Leukocytes NEGATIVE Urine WBC (Auto) <10 Urine RBC (Auto) <10 U Epithel Cells (Auto) <10 Urine Bacteria (Auto) NEGATIVE Urine Opiates Screen NONE DETECTED Ur Oxycodone Screen NONE DETECTED Ur Methadone, Qual NONE DETECTED Ur Barbiturates Screen NONE DETECTED Ur Phencyclidine Scrn NONE DETECTED Ur Amphetamines Screen NONE DETECTED U Benzodiazepines Scrn NONE DETECTED Urine Cocaine Screen NONE DETECTED U Cannabinoids Screen PRESUMPTIVE POSITIVE A Plasma/Serum Ethyl Alc 12/24/16 12/24/16 12/24/16 21:21 21:21 21:21 WBC 5.48 RBC 3.49 L Hgb 10.2 L Hct 28.9 L MCV 82.8 MCH 29.2 MCHC 35.3 RDW Std Deviation 12.3 Plt Count 206 MPV 10.9 H Immature Gran % (Auto) 0.4 Neut % (Auto) 68.8 Lymph % (Auto) 23.0 [place] % (Auto) 6.4 Eos % (Auto) 0.9 Baso % (Auto) 0.5 Immature Gran # (Auto) 0.02 Neut # (Auto) 3.77 Lymph # (Auto) 1.26 [place] # (Auto) 0.35 Eos # (Auto) 0.05 Baso # (Auto) 0.03 PT INR PTT (Actin FS) Specimen Type Sample Site pH pCO2 pO2 HCO3 Base Excess Oxyhemoglobin ABG O2 Sat (Calculated) ABG O2 Saturation ABG Carboxyhemoglobin ABG Methemoglobin Viktor Test A-a O2 Difference Total Hemoglobin Lactate Liter Flow Blood Gas Modality FiO2 % Sodium 129 L Potassium 3.0 L Chloride 88 L Carbon Dioxide 28 Anion Gap 13 BUN 10 Creatinine 1.0 Estimated GFR/1.73 m2 > 60 BUN/Creatinine Ratio 10 Glucose 876 H* Calculated Osmolality 301 Calcium 8.8 Total Bilirubin 0.21 AST 12 ALT 8 L Alkaline Phosphatase 88 Creatine Kinase 36 Troponin T Total Protein 6.4 Albumin 2.7 L Globulin 3.7 Albumin/Globulin Ratio 0.7 Plasma Lactate 3.2 H Urine Source Urine Color Urine Turbidity Urine pH Ur Specific [place] Urine Protein Ur Glucose (Stick) Ur Ketones (Stick) Urine Blood Urine Nitrite Urine Bilirubin Urobilinogen Dipstick Urine Leukocytes Urine WBC (Auto) Urine RBC (Auto) U Epithel Cells (Auto) Urine Bacteria (Auto) Urine Opiates Screen Ur Oxycodone Screen Ur Methadone, Qual Ur Barbiturates Screen Ur Phencyclidine Scrn Ur Amphetamines Screen U Benzodiazepines Scrn Urine Cocaine Screen U Cannabinoids Screen Plasma/Serum Ethyl Alc 12/24/16 12/24/16 12/24/16 21:21 21:21 22:15 WBC RBC Hgb Hct MCV MCH MCHC RDW Std Deviation Plt Count MPV Immature Gran % (Auto) Neut % (Auto) Lymph % (Auto) [place] % (Auto) Eos % (Auto) Baso % (Auto) Immature Gran # (Auto) Neut # (Auto) Lymph # (Auto) [place] # (Auto) Eos # (Auto) Baso # (Auto) PT 9.3 INR 0.91 PTT (Actin FS) 22.3 Specimen Type ARTERIAL Sample Site R RADIAL pH 7.45 pCO2 46 H pO2 389 H HCO3 30.5 H Base Excess 7.2 H Oxyhemoglobin 96.3 ABG O2 Sat (Calculated) 13.4 L ABG O2 Saturation 99.7 ABG Carboxyhemoglobin 1.50 ABG Methemoglobin 1.9 H Viktor Test YES A-a O2 Difference 267.0 Total Hemoglobin 9.1 L Lactate 3.20 H Liter Flow 12.0 Blood Gas Modality NRB FiO2 % 100.0 Sodium Potassium Chloride Carbon Dioxide Anion Gap BUN Creatinine Estimated GFR/1.73 m2 BUN/Creatinine Ratio Glucose Calculated Osmolality Calcium Total Bilirubin AST ALT Alkaline Phosphatase Creatine Kinase Troponin T < 0.010 Total Protein Albumin Globulin Albumin/Globulin Ratio Plasma Lactate Urine Source Urine Color Urine Turbidity Urine pH Ur Specific [place] Urine Protein Ur Glucose (Stick) Ur Ketones (Stick) Urine Blood Urine Nitrite Urine Bilirubin Urobilinogen Dipstick Urine Leukocytes Urine WBC (Auto) Urine RBC (Auto) U Epithel Cells (Auto) Urine Bacteria (Auto) Urine Opiates Screen Ur Oxycodone Screen Ur Methadone, Qual Ur Barbiturates Screen Ur Phencyclidine Scrn Ur Amphetamines Screen U Benzodiazepines Scrn Urine Cocaine Screen U Cannabinoids Screen Plasma/Serum Ethyl Alc (Rey Callahan) Departure <Nila Perez - Last Filed: 12/24/16 21:00> - Departure Time of Disposition Order: 22:28 Certified Medical Emergency: Emergent <Rey Callahan - Last Filed: 12/24/16 22:27> - Departure Time of Disposition Order: 19:00 Certified Medical Emergency: Emergent <Declan New - Last Filed: 12/25/16 21:41> - Departure DIAGNOSIS: Hyperglycemia, Poor compliance with medication Altered mental status Qualifiers: Altered mental status type: unspecified Qualified Code(s): R41.82 - Altered mental status, unspecified Alcohol withdrawal seizure Qualifiers: Complication of substance-induced condition: with unspecified complication Qualified Code(s): F10.239 - Alcohol dependence with withdrawal, unspecified Hypertension Qualifiers: Hypertension type: unspecified secondary hypertension Qualified Code(s): I15.9 - Secondary hypertension, unspecified Disposition: ADMITTED INPATIENT 09 Condition: Stable Attestation - Scribe Verification/Attestation Scribe:: Rey Callahan Acting as Scribe for:: Declan New Scribe documention review:: This chart was documented by a scribe and accurately reflects the service the provider performed and the decisions made by the provider. <Rey Callahan - Last Filed: 12/24/16 22:27> Physician Attestation
[2016-12-24] MEDS ORDERED: ATIVAN ONE ×2 (20:42→20:51)
[2016-12-24 21:28] LABS: MANUAL DIFF NEEDED? NO
[2016-12-24 21:31] LABS: URINE CULTURE NEEDED? NO; URINE MICRO REVIEW NEEDED? NO; URINE SOURCE CATH
[2016-12-24 21:35] LABS: BASO% 0.5 % (0.0-0.8); EOS# 0.05 X1000 (0.0-0.7); EOS% 0.9 % (0.0-10.0); HEMATOCRIT 28.9 % (42.0-52.0); HEMOGLOBIN 10.2 g/dL (14.0-18.0); IMM GRAN# 0.02 X1000 (0.0-0.04); IMM GRAN% 0.4 % (0.0-0.5); LYMPH# 1.26 X1000 (1.2-3.4); MCH 29.2 PG (27-31); MCHC 35.3 g/dL (33-37); MCV 82.8 FL (81-99); MONO# 0.35 X1000 (0.11-0.59); MONO% 6.4 % (1.7-9.3); MPV 10.9 FL (7.4-10.4); NEUT% 68.8 % (42.2-75.2); PLT 206 X1000 (130-400); RBC 3.49 XMIL (4.7-6.1)
[2016-12-24] MEDS ORDERED: ATIVAN IV ONE ×3 (21:35→21:36)
[2016-12-24 21:37] LABS: BILIRUBIN URINE NEGATIVE (NEGATIVE); BLOOD URINE TRACE (NEGATIVE); COLOR STRAW; GLUCOSE URINE >1000 mg/dL (NEGATIVE); LEUKOCYTES URINE NEGATIVE (NEGATIVE); NITRITE URINE NEGATIVE (NEGATIVE); PROTEIN URINE 70 mg/dL (NEGATIVE); SP GRAVITY URINE 1.025; TURBIDITY URINE CLEAR (CLEAR); UROBILINOGEN URINE NORMAL (NORMAL)
[2016-12-24 21:38] LABS: UR EPITHELIAL CELLS <10 /HPF (<10); URINE BACTERIA NEGATIVE /HPF; URINE RBC <10 /HPF (<10); URINE WBC <10 /HPF (<10)
[2016-12-24 21:58] LABS: INR 0.91; PROTIME 9.3 Seconds (9.2-11.7); PTT 22.3 Seconds (22.0-36.0)
[2016-12-24 22:06] LABS: UR AMPHETAMINES QUAL NONE DETECTED (NONE DETECT); UR BARBITUATES QUAL NONE DETECTED (NONE DETECT); UR BENZODIAZEPIN QUAL NONE DETECTED (NONE DETECT); UR CANNABINOIDS QUAL PRESUMPTIVE POSITIVE (NONE DETECT); UR COCAINE QUAL NONE DETECTED (NONE DETECT); UR METHADONE QUAL NONE DETECTED (NONE DETECT); UR OPIATES QUAL NONE DETECTED (NONE DETECT); UR OXYCODONE QUAL NONE DETECTED (NONE DETECT); UR PCP QUAL NONE DETECTED (NONE DETECT)
[2016-12-24 22:10] LABS: AGAP 13; ALBUMIN 2.7 g/dL (3.5-5.0); ALKALINE PHOSPHATASE 88 U/L (32-122); BUN 10 mg/dL (8-22); CALCIUM 8.8 mg/dL (8.8-10.2); CHLORIDE 88 mmol/L (98-107); CK PROFILE 36 U/L (24-204); COSMO 301; GOT 12 U/L (10-34); GPT 8 U/L (10-44); SODIUM 129 mmol/L (136-145); TCO2 28 mmol/L (25-35); TOTAL BILIRUBIN 0.21 mg/dL (0.20-1.00); TOTAL PROTEIN 6.4 g/dL (6.3-8.3)
[2016-12-24 22:22] LABS: ALLEN TEST YES; BE 7.2 mmoll (-3.0-3.0); BLOOD TYPE ARTERIAL; DRAW SITE R RADIAL; METHB 1.9 % (0.0-1.5); MODALITY NRB; O2(CT) 13.4 mL/dL (15.0-23.0); PCO2(98.6) 46 mmHg (35-45); PO2(98.6) 389 mmHg (60-100); SAMPLE BLOOD; SAO2 99.7 % (95.0-100.0); THB 9.1 g/dL (11.5-17.4); pH(98.6) 7.45 (7.35-7.45)
[2016-12-24] MEDS ORDERED: M.V.I.-12 10 ML, FOLIC ACID 1 MG, MAGNESIUM SULFATE 1 GM, THIAMINE 100 MG in NS 1,000 ML IV ONE (22:25)
[2016-12-24] MEDS ORDERED: CATAPRES PO ONE (22:26)
[2016-12-24] MEDS ORDERED: THIAMINE IM ONE (22:41)
[2016-12-24] MEDS ORDERED: NS + KCL 40 MEQ 1,000 ML IV ONE (23:03)
[2016-12-24 23:36] LABS: AMYLASE 74 U/L (20-200); LIPASE 97 U/L (13-60)
[2016-12-25] MEDS ORDERED: LANTUS SUBQ ONE (00:08)
[2016-12-25] MEDS ORDERED: NS 1,000 ML IV ONE (00:08)
[2016-12-25] MEDS ORDERED: D5 1/2 NS 1,000 ML IV ONE (00:08)
[2016-12-25] MEDS ORDERED: HUMALOG SUBQ SCH (00:15)
[2016-12-25] MEDS ORDERED: ZOFRAN IV PRN (00:36)
[2016-12-25] MEDS ORDERED: TYLENOL PR PRN (00:36)
[2016-12-25] MEDS: LOVENOX SUBQ SCH (01:10)
[2016-12-25 02:30] LABS: AGAP 11; BUN 8 mg/dL (8-22); CALCIUM 8.5 mg/dL (8.8-10.2); CHLORIDE 99 mmol/L (98-107); COSMO 282; MAGNESIUM 1.9 mg/dL (1.5-2.7); POTASSIUM 3.2 mmol/L (3.5-5.1); SODIUM 137 mmol/L (136-145); TCO2 27 mmol/L (25-35)
--- NOTE | 2016-12-25 03:44 | HISTORY AND PHYSICAL ---
DATE AND TIME OF HISTORY AND PHYSICAL: December 24, 2016 at 2300. CHIEF COMPLAINT: Altered mental status and slurred speech. HISTORY OF PRESENT ILLNESS: Mr. Singh is a 56-year-old -[place] male with a history of alcohol dependence, hypertension, uncontrolled diabetes mellitus, marijuana abuse, and history of alcohol withdrawal seizures in the past. The patient presented to the ER at approximately 8:30 tonight after the family called EMS and reported the patient was altered with slurred speech. They also reported that he was attempting to get up out of a chair and fell forward, was stumbling around and fell though they denied any loss of consciousness or any seizure on the scene. The patient was most recently admitted to [facility] on December 07, 2016 for alcoholic pancreatitis and hyperglycemia. Though before he was able to be decreased, the patient did decide to leave against medical advice. Upon presentation in the ER today, patient was found to be lethargic only responding to painful stimuli. He also had nonreactive pupils and a fixed deviated gaze to the right. During the patient's CT of head and C-spine, he did have a reported 0-yurcac-aais seizure though there was only 1 episode of this. The patient was given a total of 6 mg of Ativan during this time. Laboratory results showed a serum glucose of 876 though his bicarbonate was 28 and anion gap was 13. Patient's arterial blood gases showed a pH of 7.4 with a pCO2 of 46 and an HCO3 of 30.5. CT of the head and C-spine without contrast showed no acute intracranial abnormalities. Only noted were chronic ischemic changes. Unfortunately, at this time no family has been present in the ER with the patient to provide any assistance with history of present illness. At this time, we will admit the patient for further treatment and evaluation of his encephalopathy, hyperglycemia, and fluid volume depletion. REVIEW OF SYSTEMS: A 14-point review of systems was conducted with the patient and all were negative except for pertinent positives mentioned in above HPI. Review of systems and assessment were limited due to the patient's current condition. PAST MEDICAL HISTORY: 1. Alcohol dependence. 2. Marijuana dependence. 3. Hypertension. 4. Poorly controlled diabetes mellitus. 5. Medical noncompliance. 6. History of previous alcohol withdrawal seizures. 7. Alcoholic pancreatitis. PAST SURGICAL HISTORY: 1. Cholecystectomy. 2. Pancreatic duct stent placement in the past. SOCIAL HISTORY: This was obtained from a previous H and P. Patient is reportedly single. He does have 1 daughter though currently lives with his brother. He previously reported that he drinks 4 beers a day and smokes marijuana. It is unknown whether or not the patient smokes cigarettes though the ER staff did find chewing tobacco in the patient's mouth upon examination. FAMILY HISTORY: At this time, we are unable to obtain any past family medical history due to the patient's current condition. ALLERGIES: No known drug allergies. HOME MEDICATIONS: These were also unable to be obtained and verified though on the patient's previous admission in November 2016 he did take Norvasc 5 mg daily, Lantus 100 units subcutaneous daily, Prinivil 40 mg daily, and metformin 500 mg p.o. daily. DIAGNOSTIC DATA: Laboratory results: White blood cell count 5.4. Hemoglobin 10.2. Hematocrit 28.9. Platelet count is 206. PT 9.3. INR 0.9. PTT 22.3. Sodium 129. Potassium 3.0. Chloride 88. Bicarbonate 28. Anion gap is 13. Creatinine 1.0. GFR greater than 60. Glucose 876. Hemoglobin A1c is 15. Serum osmolality is 321. Calcium 8.8. Phosphorus 3.1. Magnesium 2. Liver function tests within normal limits. CK 36. Troponin less than 0.01. Amylase 74. Lipase 97. Plasma lactate was 3.2. Albumin is 2.7. Arterial blood gases were obtained on nonrebreather at 100% FIO2: pH was 7.45, pCO2 of 46, pO2 HCO3 was 30.5 with a base excess of 7.2, O2 saturation was 99.7. Urinalysis was positive for protein, trace blood, and greater than 1000 glucose, was otherwise normal. Urine drug screen was positive for marijuana and serum alcohol was zero. EKG showed normal sinus rhythm at a rate of 97 with a prolonged QT, QTc was 495. A chest x-ray showed no acute abnormality though we are awaiting the official radiology overread. A CT head without contrast showed no acute intracranial abnormality though there were chronic ischemic changes noted. CT C-spine showed no fracture or acute abnormalities. PHYSICAL EXAMINATION: VITAL SIGNS: Temperature 97.9, heart rate 98, respirations 15, blood pressure 157/95, oxygen saturation is 100% nonrebreather at 15 L. GENERAL: Mr. Singh is a 56-year-old -[place] male who is resting in the ER stretcher. He does not appear to be in any acute distress though is very lethargic upon examination. HEENT: Head is atraumatic, normocephalic. Pupils are equal, round, and 3 mm bilaterally though were nonreactive. The patient does have a fixed gaze to the right. He also has nystagmus noted upon examination in both eyes. Oral mucosa was slightly dry. Oropharynx was clear. NECK: Supple. Trachea midline. No JVD noted. No carotid bruits noted upon auscultation bilaterally. CARDIOVASCULAR: Patient has normal S1, S2. No murmurs, gallops, or rubs appreciated with a regular rate and rhythm. PULMONARY: Patient has symmetrical chest expansion bilaterally. Lung sounds are clear to auscultation in bilateral full condon. ABDOMEN: Soft, nondistended, and no facial grimacing or guarding was noted upon palpation. Bowel sounds were present in all 4 quadrants, were normoactive. GENITOURINARY: Patient does have a Davidson catheter in place at this time and does have clear yellow urine noted to the Davidson drainage bag. EXTREMITIES: No cyanosis, clubbing or edema noted. Pedal pulses were 3 plus bilaterally. Radial pulses were 3 plus bilaterally as well. Patient does have movement noted in all extremities except for his right lower extremity though there does appear to be weakness and /or limited movement in his right upper extremity compared to left. INTEGUMENTARY: The patient's skin is pink, warm, dry, and intact. No lesions or sores noted except for the patient does have an approximately nickel-sized abrasion noted to his left knee though no active bleeding noted. Patient also has decreased skin turgor noted as well. NEUROLOGICAL: Patient is lethargic at this time and is only responsive to painful stimuli though his neurological exam at this time is very limited due to his current condition. It does appear that the patient does have a right deviated gaze with nystagmus noted. When painful stimuli is implemented with a sternal rub, patient does appear to have more muscle strength and movement in his left upper extremity when compared to his right. Upon painful stimulation, the patient did withdraw from pain in his left lower extremity though had no movement in his right lower extremity. ASSESSMENT AND PLAN: 1. Encephalopathy. At this time, this is of uncertain etiology though there is a high suspicion for a possible stroke. This could have been precipitated by his hyperglycemic state and/or hypertension due to the patient's blood pressure was elevated at 180/106 upon arrival. Though we cannot rule out the possibility of Neftali's palsy contributing to his right- sided weakness and right lower extremity paralysis. It also is uncertain whether or not his seizure may have been related to a possible stroke or alcohol withdrawal given his history of this. Another differential diagnosis is Wernicke's encephalopathy given his history of alcohol abuse. At this time, we will admit the patient to the ICU. We will monitor him very closely as well as do q.2 hour neuro checks. We have placed a consult with Neurology as well. We will place an order for MRI of the brain without contrast in the morning as well as MRA of the neck with contrast and we will continue to follow him closely and also monitor him for seizures as well. 2. Nonketotic hyperosmolar hyperglycemia. The patient was given a total of 25 units of insulin IV in the ER which over a period of time did bring his glucose down to 333. Due to this, we did decide not to place the patient on an insulin drip. We will implement sliding scale low dose lispro insulin q.4 hours. We have also given him Lantus 50 units subcutaneous. We will monitor his fingerstick blood sugars q.4 hours. We have given him fluid resuscitation with now a total of 3 L of normal saline 1 of which did have 40 mEq of KCl. We will continue with normal saline at 250 mL per hour though once the patient's glucose is less than 250 we will transition him to D5 half-normal saline at 125 mL per hour and we will continue to monitor closely. The patient's hemoglobin A1c was 15. 3. Fluid volume depletion. We will continue with treatment as mentioned above for number 2 and continue to follow. 4. Hypertension. According to the patient's previous records, he did take Norvasc 5 mg once p.o. daily for this but at this time given his high suspicion for a possible stroke we will allow permissive hypertension and just monitor this closely. 5. History of alcohol abuse. We have an order for the patient to have 100 mg of thiamine IM as well as a banana bag and continue to monitor him closely for any other signs of withdrawal symptoms as well. 6. Tobacco abuse. ER staff did report they found a large amount of chewing tobacco in the patient's mouth. We will student counsellor the patient for the need to quit using tobacco products of any kind. Patient will be placed in ICU with telemetry. He will have vital signs q.1 hour per ICU protocol. We will do strict intake and output. We will implement aspiration precautions as well as seizure precautions. He will remain NPO at this time. We also did place orders for an echo as well as a speech evaluation. We will continue to monitor the patient's electrolytes closely with q.4 hour BMP, magnesium, and phosphorus collections and we will treat as necessary. GI prophylaxis at this time will be provided with Protonix 40 mg IV q.24 hours and DVT prophylaxis will be provided with Lovenox 40 mg subcutaneous q.24 hours and we will continue to monitor this patient very closely. Other orders and recommendations pending hospital course, diagnostic studies, and physician evaluation. CRITICAL CARE TIME: Approximately 45 minutes. Dictated by SAIDA Perez for Lazaro Norman MD MTDD
[2016-12-25] MEDS: ATIVAN IV PRN ×5 (03:52→20:23)
[2016-12-25] MEDS: HUMALOG SUBQ SCH ×7 (04:09→23:25)
[2016-12-25 05:25] LABS: ALLEN TEST YES; BE 4.2 mmoll (-3.0-3.0); BLOOD TYPE ARTERIAL; DRAW SITE R RADIAL; METHB 1.3 % (0.0-1.5); O2(CT) 12.5 mL/dL (15.0-23.0); PCO2(98.6) 48 mmHg (35-45); PO2(98.6) 63 mmHg (60-100); SAMPLE BLOOD; SAO2 95.7 % (95.0-100.0); THB 9.6 g/dL (11.5-17.4)
[2016-12-25 05:27] LABS: MODALITY ROOM AIR
[2016-12-25] MEDS: SODIUM CHLORIDE 0.9% INJ SCH (06:30)
[2016-12-25] MEDS: PROTONIX IV SCH (06:30)
[2016-12-25 06:53] LABS: MANUAL DIFF NEEDED? NO
[2016-12-25 07:10] LABS: BASO% 0.4 % (0.0-0.8); EOS# 0.08 X1000 (0.0-0.7); EOS% 0.7 % (0.0-10.0); HEMATOCRIT 26.4 % (42.0-52.0); HEMOGLOBIN 9.4 g/dL (14.0-18.0); IMM GRAN# 0.05 X1000 (0.0-0.04); IMM GRAN% 0.4 % (0.0-0.5); LYMPH# 2.14 X1000 (1.2-3.4); LYMPH% 18.9 % (20.5-51.1); MCH 29.3 PG (27-31); MCHC 35.6 g/dL (33-37); MCV 82.2 FL (81-99); MONO# 0.81 X1000 (0.11-0.59); MONO% 7.2 % (1.7-9.3); MPV 10.1 FL (7.4-10.4); NEUT% 72.4 % (42.2-75.2); PLT 225 X1000 (130-400); RBC 3.21 XMIL (4.7-6.1)
[2016-12-25 07:54] LABS: AGAP 10; BUN 7 mg/dL (8-22); CALCIUM 8.5 mg/dL (8.8-10.2); CHLORIDE 103 mmol/L (98-107); COSMO 276; POTASSIUM 2.9 mmol/L (3.5-5.1); SODIUM 139 mmol/L (136-145); TCO2 26 mmol/L (25-35)
--- NOTE | 2016-12-25 07:59 | Diag Imaging Result Document ---
PROCEDURE NAME: HEAD/C-SPINE W/O CONTRAST - 12/24/2016 CT HEAD AND C-SPINE WITHOUT CONTRAST: COMPARISON: 01/10/2016. FINDINGS: HEAD: There are stable bilateral cerebellar calcifications noted incidentally. There is no discrete intracranial mass, mass effect, or intracranial hemorrhage. There is no evidence of acute infarct given the limited sensitivity of CT versus MRI. There is bilateral maxillary and minimal ethmoid sinus mucosal disease. Surrounding soft tissues are grossly unremarkable, otherwise. The calvaria is intact. C-SPINE: The cervical spinal canal is congenitally somewhat narrow. There is a prominent central disk protrusion at the C3-4 level causing fairly severe central spinal stenosis and probably some degree of cord compression. This is of unknown acuity. It is probably, at least in part, chronic, however. There are also small broad-based disk bulges at C4-5 and C5-6 causing much milder central canal narrowing. There is no evidence of fracture, subluxation, or intrinsic osseous lesion, otherwise. Surrounding soft tissues are essentially unremarkable. IMPRESSION: 1. No evidence of acute intracranial pathology. 2. Degenerative disk disease at several cervical spine levels as described with a central disk protrusion at C3-4 causing fairly severe central spinal stenosis. This is of unknown acuity but, at least in part, probably chronic. Cervical spine MRI is recommended if not contraindicated to better evaluate the severity. 3. No evidence of fracture.
--- NOTE | 2016-12-25 09:17 | EKG Report ---
Test Performed on : 12/24/2016 9:07:03 PM Test Reason : stroke like symptoms Blood Pressure : / mmHG Vent. Rate : 097 BPM Atrial Rate : 097 BPM P-R Int : 178 ms QRS Dur : 082 ms QT Int : 390 ms P-R-T Axes : 067 034 061 degrees QTc Int : 495 ms Normal sinus rhythm. Prolonged QT Abnormal ECG When compared with ECG of 09-JAN-2016 22:27, No significant change was found Unconfirmed Result
[2016-12-25] MEDS ORDERED: D50W SYRINGE ONE ×2 (10:02→15:30)
--- NOTE | 2016-12-25 10:07 | Diag Imaging Result Document ---
PROCEDURE NAME: CHEST-PORTABLE - 12/24/2016 PORTABLE CHEST X-RAY, 12/24/2016: COMPARISON: 12/07/2016. FINDINGS: The lungs are normally expanded and clear. Heart size and mediastinal contours are normal. No pneumothorax or pleural effusion. IMPRESSION: Negative exam.
[2016-12-25 10:46] LABS: AGAP 12; BUN 6 mg/dL (8-22); CALCIUM 8.3 mg/dL (8.8-10.2); CHLORIDE 103 mmol/L (98-107); COSMO 274; POTASSIUM 2.5 mmol/L (3.5-5.1); SODIUM 140 mmol/L (136-145); TCO2 25 mmol/L (25-35)
--- NOTE | 2016-12-25 11:01 | Diag Imaging Result Document ---
PROCEDURE NAME: MRI BRAIN W/O CONTRAST - 12/25/2016 MRI BRAIN, 12/25/2016: COMPARISON: Head CT 12/24/2016. FINDINGS: The ventricles and sulci are normal in size and contour. No intracranial mass or hemorrhage. There are some signal abnormalities corresponding with dense calcifications in the dentate nuclei bilaterally. The appearance is nonspecific. There is only trace calcification in the basal ganglia. There is no restricted diffusion. IMPRESSION: No acute abnormality. Abnormal but nonspecific soft-tissue calcifications primarily in the dentate nuclei bilaterally. This would be an unusual appearance for Fahr disease, familial cerebral ferrocalcinosis. [facility]
--- NOTE | 2016-12-25 11:03 | Diag Imaging Result Document ---
PROCEDURE NAME: MRA NECK W/CONT - 12/25/2016 MR ANGIOGRAM OF THE NECK WITH INTRAVENOUS CONTRAST, 12/25/2016: COMPARISON: None. FINDINGS: The carotid artery systems are patent bilaterally. There is redundancy of the internal carotids bilaterally. No evidence of stenosis or aneurysm. The vertebrobasilar system is patent. The vertebral arteries are codominant. IMPRESSION: No acute disease.
[2016-12-25] MEDS ORDERED: ATIVAN IV ONE (11:23)
[2016-12-25] MEDS ORDERED: POTASSIUM CHLORIDE 20 MEQ/SWI 100 ML IV ONE (11:31)
[2016-12-25] MEDS ORDERED: D50W SYRINGE IV ONE ×2 (11:49→15:36)
[2016-12-25 14:39] LABS: AGAP 12; BUN 5 mg/dL (8-22); CALCIUM 8.4 mg/dL (8.8-10.2); CHLORIDE 108 mmol/L (98-107); COSMO 276; MAGNESIUM 2.1 mg/dL (1.5-2.7); POTASSIUM 3.1 mmol/L (3.5-5.1); SODIUM 141 mmol/L (136-145); TCO2 21 mmol/L (25-35)
[2016-12-25] MEDS ORDERED: D10W 1,000 ML IV SCH (16:00)
--- NOTE | 2016-12-25 17:47 | CONSULTATION ---
DATE OF CONSULTATION: 12/25/2016 HISTORY OF PRESENT ILLNESS: Mr. Singh is 56 years old and it sounds like he had a seizure witnessed here. The hospital chart records seizure witnessed while he was on his way to imaging or having imaging. In retrospect, he might have had seizure at home prior to arrival. He has not had any more definite clinical seizure noted since that incident on the way to imaging. Lab work in the computer showed glucose over 800. A1c 15%. WBC count was initially 5000, later 11,000. Sodium was 129. Urine drug screen was positive for cannabis and otherwise negative. Serum ethanol level was none. Noncontrast CT of the head was reported unremarkable. He is not able to provide history now. PHYSICAL EXAMINATION: On exam, he is initially asleep, and still. With moderate level of stimulation, he became alert, opened his eyes, looked at me, mumbled. When not vigorously stimulated, he quickly seemed back to sleep. He moved all limbs. When tested for tone, tone is equal in the limbs. He moved his right limbs more consistently and purposefully than the left. He has extensor plantar response bilaterally but more briskly on the left. Extraocular movements are full with passive head turning. When he was briefly alert, he moved his eyes spontaneously conjugately to the left and to the right. Corneal reflex is present bilaterally. Facial motility is diminished bilaterally but appears symmetric. Head and neck are unremarkable. There is no meningismus. Reflexes are absent at the knees and ankles, 1+ at the wrists. IMPRESSION/PLAN: Apparent seizure. The episode was not described more precisely but I suspect this was a generalized seizure. There is very minimal and inconsistent focal finding suggesting possible slight left hemiparesis but nothing reproducible on exam. Negative CT is reassuring. I believe that he has had MRI scan and I will check on that report when available. The etiology of seizure is not certain. I do not know if there is past history of seizure, or not. There is reported to be history of alcohol dependence and he presented at this time with no ethanol level detected. This raises the possibility of alcohol withdrawal seizure. His home medicine list is uncertain, if any. I do not know if he has benzodiazepines or any other medicine that might be associated with seizure either with intoxication or in withdrawal. He had significant elevated blood sugar and some other metabolic findings which might also contribute to seizure. I believe he has received lorazepam for seizure control and that appears to be effective to this point. I will check on the MRI report. Next step would be to consider EEG when practical. Thanks for asking me to see Francisco. MTDD
[2016-12-25] MEDS ORDERED: POTASSIUM PHOSPHATE 40 MMOL in NS 250 ML IV ONE (19:32)
[2016-12-25] MEDS ORDERED: M.V.I.-12 10 ML, MAGNESIUM SULFATE 2 GM, THIAMINE 100 MG, FOLIC ACID 1 MG in D5 NS 1,00... IV ONE (19:45)
[2016-12-25] MEDS ORDERED: ZYPREXA ZYDIS PRN (19:45)
[2016-12-25] MEDS: ATIVAN IV SCH ×2 (20:42→20:52)
[2016-12-25] MEDS: ATIVAN 20 MG in NS 190 ML IV SCH (20:43)
[2016-12-25] MEDS: D50W SYRINGE IV PRN (21:18)
--- NOTE | 2016-12-25 22:25 | PROGRESS NOTE ---
DATE: 12/25/2016 SUBJECTIVE: This is a 56-year-old, black male with history of alcohol dependency, hypertension, uncontrolled diabetes mellitus type 2 and marijuana use, with history of alcohol withdrawal seizures in the past. Patient presented to the emergency room approximately 0830 hours after the family called EMS. Reportedly, the patient had altered mental status, slurred speech. Also reported he was attempting to get up out of his chair and fell forward and was stumbling and fell, though they denied any loss of conscious or any seizures at the scene. The patient was most recently admitted to [facility] in 12/11/2016 for alcoholic pancreatitis and hyperglycemia, though before he was able to decrease, the patient did decide to leave against medical advice. Upon presentation in the emergency room on 12/24 yesterday, he was found to be lethargic, only responded to painful stimuli, Had nonreactive pupils, fixed deviated gaze to the right. During the patient patient's CT of the head and C-spine, he did have reported 8 minute long seizure, though there was only 1 episode of this. The patient was given total of 6 mg of Ativan during this time. LABORATORY RESULTS: Showed glucose of 876, though his bicarb was 28, anion gap was 13. Patient had arterial blood gases that showed pH 7.4, pCO2 46, bicarb was 30. IMAGING: CT of the head and C-spine without contrast showed no acute intracranial abnormalities. Only noted were some chronic old ischemic changes. Unfortunately at this time during this admission, there is no family to assist. PAST MEDICAL HISTORY: Family later showed up and corroborated that he has a long history of drinking and past medical history of: 1. Alcohol dependence. 2. Marijuana dependence. 3. Hypertension. 4. Poorly controlled diabetes mellitus type 2. 5. Medical noncompliance. 6. History of previous alcohol withdrawal seizures. 7. Alcoholic pancreatitis. PAST SURGICAL HISTORY: 1. Cholecystectomy. 2. Pancreatic duct stent placement in the past. OBJECTIVE: General: He is in the emergency room. He was sleepy. Now examined and reexamined again at 7 o'clock p.m. He is awake, he is agitated, confused, delirious. Vital signs: Temperature 98.3 degrees, pulse 100, respirations 20, blood pressure 150/85. HEENT: Pupils were reactive, equal. CVP less than 6 cm. Lungs: Clear in all lung condon. Cardiovascular: Regular rhythm and rate without murmur or S3. Abdomen: Soft. Skin: Warm and dry. Urine output was 2565 today, put out a little over a liter. LABORATORY: Reviewed. White count 11,320, hematocrit 26, platelet count 225,000. Chemistries: We did supplement his potassium and I think we will supplement with some K-Phos as well as phosphorus is a little low. Magnesium looks okay. Renal function looks good. We will start him on Ativan drip. ASSESSMENT AND PLAN: I suspect he is beginning to have delirium tremens. This may be initially just withdrawal, and I think returning to the delirium tremens.
[2016-12-26] MEDS: LOVENOX SUBQ SCH ×2 (00:30→23:36)
[2016-12-26] MEDS ORDERED: LOPRESSOR IV PRN (00:47)
[2016-12-26] MEDS ORDERED: CATAPRES-TTS-1 TD SCH (01:00)
[2016-12-26] MEDS: D50W SYRINGE IV PRN ×2 (01:44→01:46)
[2016-12-26] MEDS ORDERED: D50W SYRINGE IV PRN (03:23)
[2016-12-26] MEDS: PROTONIX IV SCH (03:45)
[2016-12-26] MEDS: SODIUM CHLORIDE 0.9% INJ SCH (03:45)
[2016-12-26] MEDS: HUMALOG SUBQ SCH ×6 (03:46→23:29)
[2016-12-26] MEDS: D10W 1,000 ML IV SCH ×2 (03:48→17:11)
--- NOTE | 2016-12-26 05:21 | ECHO REPORT ---
ORDER DATE: 12/25/2016 MEASUREMENTS: 1. Left ventricular end-diastolic 4.1, systolic diameter 2.4. 2. Posterior wall thickness 1.1. 3. Septal thickness 1.1. 4. Left atrium 4.2. 5. Aortic root 3.1. SUMMARY: 1. Adequate quality acoustic windows. 2. Aortic mitral, tricuspid and pulmonic valves are without evidence of structural abnormality. There is trace mitral regurgitation and trace tricuspid regurgitation. Estimated systolic PA pressure by Doppler is 37 mmHg. Aortic root is normal in size. 3. Normal left ventricle dimension as demonstrated. Estimated left ventricular ejection fraction appears to be approximately 65% to 70%. No regional wall motion abnormality is evident. Doppler suggests normal left ventricular diastolic function. Left atrium is mildly enlarged. Right atrium and right ventricle is normal in size with gross preserved right ventricular systolic performance. 4. No pericardial effusion. 5. Appearance of inferior vena cava suggests normal central venous pressure. CONCLUSIONS: 1. Trace tricuspid regurgitation with mild pulmonary hypertension suggested by Doppler 2. Normal left ventricular function without wall motion abnormality evident. 3. Mild left atrial enlargement.
--- NOTE | 2016-12-26 05:23 | EEG REPORT ---
DATE: 12/25/2016 EEG NUMBER: [id number] COMMENT: This is a digitally recorded EEG on a 56-year-old patient, done portably in the ICU. There is report of recent seizure. FINDINGS: This record is dominated by beta rhythm at low to medium amplitude, mostly 15 hertz occurring symmetrically across both hemispheres diffusely. There is polymorphic and rhythmic delta frontally bilaterally. No posterior dominant rhythm was identified. There is some movement and muscle contraction artifact which do not hinder interpretation. There was no variation to correlate with spontaneous drowsing or sleep. No definite epileptiform discharge was identified. INTERPRETATION: Beta rhythm is a typical benzodiazepine effect. The absence of epileptiform discharges on a single electroencephalogram does not exclude a clinical diagnosis of seizures. Background slowing is consistent with a diffuse encephalopathy and is nonspecific. [facility]
[2016-12-26] MEDS: ATIVAN 20 MG in NS 190 ML IV SCH ×2 (05:50→17:45)
[2016-12-26] MEDS: LABETALOL IV PRN ×2 (05:55→17:00)
[2016-12-26 06:12] LABS: BASO% 0.2 % (0.0-0.8); EOS# 0.05 X1000 (0.0-0.7); EOS% 0.2 % (0.0-10.0); HEMATOCRIT 29.1 % (42.0-52.0); HEMOGLOBIN 10.4 g/dL (14.0-18.0); IMM GRAN% 0.4 % (0.0-0.5); LYMPH# 1.93 X1000 (1.2-3.4); LYMPH% 7.9 % (20.5-51.1); MANUAL DIFF NEEDED? YES; MCH 29.6 PG (27-31); MCHC 35.7 g/dL (33-37); MCV 82.9 FL (81-99); MONO# 1.02 X1000 (0.11-0.59); MONO% 4.2 % (1.7-9.3); MPV 10.3 FL (7.4-10.4); NEUT% 87.1 % (42.2-75.2); PLT 204 X1000 (130-400); RBC 3.51 XMIL (4.7-6.1)
[2016-12-26 06:32] LABS: LYMPHS 7 % (21-51); MONO 4 % (1-9)
[2016-12-26 06:53] LABS: AGAP 11; BUN 4 mg/dL (8-22); CALCIUM 8.1 mg/dL (8.8-10.2); CHLORIDE 106 mmol/L (98-107); COSMO 275; POTASSIUM 3.3 mmol/L (3.5-5.1); SODIUM 140 mmol/L (136-145); TCO2 23 mmol/L (25-35)
--- NOTE | 2016-12-26 07:34 | PROGRESS NOTE ---
DATE: 12/26/2016 SUBJECTIVE: Mr. Singh required quite a bit of Ativan. He is in restraints. He was sleeping off and on. Sinus tachycardia. OBJECTIVE: Vital Signs: Afebrile. Temperature 99.2, pulse 94 to 110, respirations 17, blood pressure 182/94. HEENT: Pupils are equal. Neck: CVP less than 6 cm. Lungs: Clear in all lung condon. Cardiovascular: Regular rhythm and rate without murmur or S3. Abdomen: Soft. Skin: Warm and dry. Urine output was 1500 mL. Blood sugars 94 this morning. Labs from this morning white count 24,390, hematocrit 29, platelet count 204,000. ASSESSMENT AND PLAN: 1. Apparent seizure. I suspect generalized seizure, suspect related to alcohol withdrawal. He had some findings suggesting possible slight left hemiparesis. He appears to be moving both arms and legs fairly symmetrically. The MRI of the head did not suggest any new pathology. EEG done on 12/25: Beta rhythms, typical benzodiazepine effect. Absence of epileptiform discharges on a single EEG does not exclude clinical diagnosis of seizures. Background slowing consistent with diffuse encephalopathy and was nonspecific. Suspect alcohol withdrawals. Continue current management. He is on Ativan drip. 2. Diabetes mellitus type 2. Continue to follow sugars. He had some hypoglycemia so I believe he is on D10 at the present time. 3. Suspect some alcohol withdrawal seizures. 4. Alcohol and marijuana dependence. Appears to going into delirium tremens. Review of his orders. Not sure of the change on D10 at 85 mL an hour, clonidine patch 0.2 every 7 days, lorazepam drip, Protonix 40 mg IV q.24 hours, extra Ativan if needed, 4 mg IV p.r.n., up to 4 mg IV p.r.n., labetalol p.r.n. Need to check his electrolytes this morning and CBC was reviewed. Hematocrit stable at 29. White count did go up. Do not see any definite source of infection. Recheck chest x-ray.
--- NOTE | 2016-12-26 09:16 | Diag Imaging Result Document ---
PROCEDURE NAME: CHEST-PORTABLE - 12/26/2016 SINGLE FRONTAL RADIOGRAPH OF THE CHEST: COMPARISON: 12/24/2016. FINDINGS: Inspiration is suboptimal. The lungs remain grossly clear. Cardiac silhouette is approximately stable given differences in positioning and inspiration. IMPRESSION: Essentially stable chest.
[2016-12-26] MEDS: THERA M PLUS PO SCH (13:07)
--- NOTE | 2016-12-26 13:11 | PROGRESS NOTE ---
DATE: 12/26/2016 PATIENT LOCATION: ICU 4. Mr. Singh continues sedated with his prophylaxis for DTs. With moderately vigorous stimulation, he was awake, briefly alert, not attentive to my requests. He did not communicate with me directly. He mumbled but I did not understand his words. He used all limbs briefly, purposefully. When not vigorously stimulated, he seemed quickly back to sleep. MRI yesterday did not show evidence of acute infarction or other lesion. He has not had any more seizure or seizure-like behavior. His EEG showed prominent beta rhythm consistent with benzodiazepine on board, but no epileptiform discharge. I do not have any new suggestion from a neurologic standpoint. I would continue current management, continue prophylaxing DVTs, follow clinically. Depending on his clinical course, we might repeat EEG before discharge to see if there is a reason to consider adding medicine for seizure control. Thanks for allowing me to follow Mr. Singh.
[2016-12-26] MEDS: ATIVAN IV PRN (23:33)
[2016-12-27] MEDS: HUMALOG SUBQ SCH ×5 (03:18→20:37)
[2016-12-27] MEDS: PROTONIX IV SCH (03:18)
[2016-12-27] MEDS: D10W 1,000 ML IV SCH (03:18)
[2016-12-27] MEDS: SODIUM CHLORIDE 0.9% INJ SCH (03:18)
[2016-12-27] MEDS: ATIVAN 20 MG in NS 190 ML IV SCH ×2 (05:32→17:44)
[2016-12-27] MEDS ORDERED: NS 1,000 ML ONE (08:39)
[2016-12-27] MEDS ORDERED: HUMULIN R ONE (08:39)
[2016-12-27] MEDS: THERA M PLUS PO SCH (08:47)
[2016-12-27] MEDS: NS 1,000 ML IV SCH ×3 (09:02→23:35)
--- NOTE | 2016-12-27 09:34 | PROGRESS NOTE ---
DATE: 12/27/2016 SUBJECTIVE: He is more awake and cooperative. His mouth does feel dry. He feels like he is able to swallow. Still in 4 point restraints. OBJECTIVE: Vital signs: Temperature 98.0 degrees, pulse 92, respirations 16, blood pressure 172/82. HEENT: Pupils are equal and round. Neck: CVP less than 6 cm. Lungs: Clear in all lung condon. Cardiovascular: Regular rhythm and rate without murmur or S3. Abdomen: Soft. Skin: Warm and dry. Intake and output: Urine output was over 1000 mL. Input was 1000. LAB: White count 24,390, hematocrit 29, platelet count 204,000. Blood sugars 252, 186, 331. ASSESSMENT AND PLAN: 1. Appears to be alcohol withdrawal, delirium tremens. Requiring restraints but seems to be a little more cooperative. Continue Ativan. I do not see any evidence of current seizure activity. 2. Diabetes mellitus type 2. Continue to follow his sugars. They are running a little high so we will switch from D10 to normal saline. 3. Suspect alcohol withdrawal seizures. 4. Alcohol and marijuana dependence. We will discontinue D10 and go to D5 normal saline I believe and see how we do with that.
--- NOTE | 2016-12-27 11:33 | PROGRESS NOTE ---
DATE: 12/27/2016 Mr. Singh is more alert, following simple commands consistently, communicating more spontaneously. Speech remains dysarthric but can be understood. I did not find any definite focal deficit on a limited bedside exam. He has not had a definite further clinical seizure. I do not have any new suggestion from a neurologic standpoint. Thanks for allowing me to follow Mr. Singh. MTDD
[2016-12-27 11:35] LABS: AGAP 8; ALKALINE PHOSPHATASE 91 U/L (32-122); BUN 6 mg/dL (8-22); CALCIUM 7.7 mg/dL (8.8-10.2); CHLORIDE 103 mmol/L (98-107); COSMO 276; GOT 18 U/L (10-34); GPT 6 U/L (10-44); POTASSIUM 3.4 mmol/L (3.5-5.1); SODIUM 137 mmol/L (136-145); TCO2 26 mmol/L (25-35); TOTAL BILIRUBIN 0.29 mg/dL (0.20-1.00); TOTAL PROTEIN 4.6 g/dL (6.3-8.3)
[2016-12-27] MEDS: LABETALOL IV PRN (17:54)
[2016-12-27] MEDS: ATIVAN IV PRN (23:38)
[2016-12-28] MEDS: LOVENOX SUBQ SCH (01:26)
[2016-12-28] MEDS: HUMALOG SUBQ SCH ×6 (01:30→20:30)
[2016-12-28] MEDS: PROTONIX IV SCH (03:22)
[2016-12-28] MEDS: SODIUM CHLORIDE 0.9% INJ SCH (03:22)
[2016-12-28] MEDS: ATIVAN 20 MG in NS 190 ML IV SCH (05:21)
[2016-12-28 06:34] LABS: MANUAL DIFF NEEDED? NO
[2016-12-28 06:39] LABS: BASO% 0.2 % (0.0-0.8); EOS# 0.07 X1000 (0.0-0.7); EOS% 0.4 % (0.0-10.0); HEMATOCRIT 27.3 % (42.0-52.0); HEMOGLOBIN 9.4 g/dL (14.0-18.0); IMM GRAN# 0.05 X1000 (0.0-0.04); IMM GRAN% 0.3 % (0.0-0.5); LYMPH# 1.94 X1000 (1.2-3.4); MCH 29.1 PG (27-31); MCHC 34.4 g/dL (33-37); MCV 84.5 FL (81-99); MONO# 1.03 X1000 (0.11-0.59); MONO% 6.4 % (1.7-9.3); MPV 11.4 FL (7.4-10.4); NEUT% 80.7 % (42.2-75.2); PLT 190 X1000 (130-400); RBC 3.23 XMIL (4.7-6.1)
--- NOTE | 2016-12-28 07:43 | PROGRESS NOTE ---
DATE: 12/28/2016 SUBJECTIVE: Mr. Singh was resting, sleeping comfortably. Apparently when he is aroused, he is oriented x3. We will see if we can taper down the Ativan. He is able to swallow and hopefully we can move him to the floor soon. PHYSICAL EXAMINATION: Vital Signs: Temperature 98.2 degrees, pulse 96, respirations 13, blood pressure 134/68. Blood pressure ranged. It has been between 134-185/68-94. His urine output is good at 1 L. LABORATORY DATA: White count came down to 16,180, hematocrit 27, platelet count 190,000. Blood sugar 174, 168, and 118. ASSESSMENT AND PLAN: 1. Delirium tremens. Patient is more alert and follows simple commands consistently, and communicating well. Looks more comfortable. We will taper down on the Ativan and see if we can get him to eat and get some strength back. 2. Diabetes mellitus type 2. Sugar is under good control. 3. History of withdrawal seizures in the past. Aware. 4. Alcohol and marijuana dependence. 5. On review of orders, he is getting normal saline at 75 mL an hour. He has a clonidine patch, Protonix 40 mg intravenous every 24 hours so we will see about tapering him off the Ativan.
[2016-12-28] MEDS: THERA M PLUS PO SCH (08:41)
--- NOTE | 2016-12-28 10:43 | PROGRESS NOTE ---
DATE: 12/28/2016 Mr. Singh is awake and alert, more bright and attentive, more spontaneous today. He followed simple commands consistently. He carried on some conversation with me at the bedside. He has full visual condon tested grossly. He has good power in the limbs and strength seems symmetric on bedside testing in the arms. He did pretty well on [id number] testing bilaterally. There is some diffuse tremulousness. Neck is supple. I do not have any new thoughts or new suggestions today from a neurologic standpoint. Thanks for allowing me to follow Mr. Singh.
[2016-12-28] MEDS: ATIVAN IV PRN ×4 (12:07→23:00)
[2016-12-28] MEDS: NS 1,000 ML IV SCH ×2 (12:12→23:29)
[2016-12-29] MEDS: ATIVAN IV PRN ×2 (00:23→18:14)
[2016-12-29] MEDS: HUMALOG SUBQ SCH ×7 (00:28→23:52)
[2016-12-29] MEDS: LOVENOX SUBQ SCH (00:44)
[2016-12-29] MEDS: NS 1,000 ML IV SCH ×3 (04:43→23:05)
[2016-12-29] MEDS: SODIUM CHLORIDE 0.9% INJ SCH (04:46)
[2016-12-29] MEDS: PROTONIX IV SCH (04:46)
[2016-12-29] MEDS: D50W SYRINGE IV PRN (04:46)
[2016-12-29] MEDS ORDERED: LABETALOL IV PRN (09:24)
[2016-12-29] MEDS: THERA M PLUS PO SCH (10:05)
--- NOTE | 2016-12-29 14:18 | PROGRESS NOTE ---
DATE: 12/29/2016 ICU: Bed 4. SUBJECTIVE: Mr. Singh is awake, alert, attentive, bright, gradually more spontaneous with conversation day by day. He reports today that he recalls the recent episode beginning with some stiffening in the right arm, discomfort in the right arm, possibly some jerking in the right arm and then stiffness in the right leg. He reports previous seizures have had similar features and sometimes this progresses to the point that he loses consciousness. Sometimes he is able to remain standing and sometimes he cannot stand during the episode, but does not lose consciousness. He reports last episode before this admission was about 3 weeks earlier. He was using ethanol at that time. He report he stopped ethanol then. He vigorously denies any ethanol intake during the 3 weeks prior to current admission. He has a long history of episodes with question of seizure. Some of these have had typical features of ethanol withdrawal seizures and others have been less certain. He reports he has never been treated with medicine for seizure control. I have seen him in the office, with last visit about 8 months ago following a spell which was uncertain and seemed to be related to hypoglycemia. ASSESSMENT AND PLAN: I do not think we need to do anything urgently. He seems to be improving nicely. I have strongly encouraged him to continue ethanol abstinence. Regarding seizure medicines, I think best management will be to repeat his EEG electively and then make a determination about that. If he has a clinical seizure while observed here, I would reconsider and probably add medicine for seizure control at that point. Thanks for allowing me to follow Mr. Singh.
[2016-12-30] MEDS: LOVENOX SUBQ SCH (00:11)
[2016-12-30] MEDS: PROTONIX IV SCH (04:02)
[2016-12-30] MEDS: HUMALOG SUBQ SCH ×5 (04:02→20:00)
[2016-12-30] MEDS: SODIUM CHLORIDE 0.9% INJ SCH (04:02)
[2016-12-30] MEDS: NS 1,000 ML IV SCH ×2 (10:13→22:57)
[2016-12-30] MEDS: THERA M PLUS PO SCH (10:13)
[2016-12-30] MEDS: ATIVAN IV PRN ×4 (10:13→22:57)
--- NOTE | 2016-12-30 10:44 | PROGRESS NOTE ---
DATE: 12/30/2016 SUBJECTIVE: Mr. Singh is awake and alert, feel better. He is pretty weak, but he is eating well. No nausea, no pain. OBJECTIVE: General: He is oriented to person and place. I see no tremor at this time, no auditory or visual hallucinations. Vital signs: Temp 98, pulse 80, respirations 20, blood pressure 156/82. Lungs: Clear in all lung condon. Cardiovascular: Regular rhythm and rate without murmur or S3. Urine output was over 700 mL. LAB: Blood sugar 304, 122, 227. White count from the 16,180, hematocrit 27, platelet count 190,000. ASSESSMENT AND PLAN: 1. Seems to be improving related to delirium tremens. Mental status, cognitive ability improving. He is very weak, so continue physical therapy. 2. Diabetes mellitus type 2. Sugars under good control. Continue patterned sugars, sliding scale. 3. He has had withdrawal seizures in the past. 4. Alcohol and marijuana dependence. Continue physical therapy, and hopefully we can discharge the first of the week and decide on what our long-term plan is. REVIEW OF HIS ORDERS: He is getting normal saline at 75 mL/h., a clonidine patch which is a 0.1 mg patch every week. Blood pressure appears to be better controlled once he has improved from his delirium tremens. Protonix 40 mg IV daily. I think we need to switch that to p.o.
[2016-12-31] MEDS: HUMALOG SUBQ SCH ×4 (01:38→21:59)
[2016-12-31] MEDS: LOVENOX SUBQ SCH (01:56)
[2016-12-31] MEDS: PROTONIX PO SCH ×2 (05:50→06:16)
[2016-12-31] MEDS: NS 1,000 ML IV SCH (09:07)
[2016-12-31] MEDS: THERA M PLUS PO SCH (09:08)
[2016-12-31] MEDS: D50W SYRINGE IV PRN (09:09)
[2016-12-31] MEDS: ATIVAN IV PRN (09:12)
--- NOTE | 2016-12-31 10:32 | PROGRESS NOTE ---
DATE: 12/31/2016 SUBJECTIVE: Mr. Singh is sitting up in the chair. He did have a weak spell and it correlates with a drop in his sugars 36, 38, so I am going to have them take him off of insulin altogether. They did get some D50. He did eat all of his breakfast. Note that blood cultures from 12/24/2016 x2 were with no growth. PHYSICAL EXAMINATION: Vital Signs: Temperature 97.7 degrees, pulse 92, respirations 20, blood pressure 173/93. HEENT: Pupils are equal and round. Lungs: Clear in all lung condon. Cardiovascular Examination: Regular rhythm and rate without murmur or S3. Abdomen: Soft. O2 saturation 100%. Blood sugars were staying 325, 227, 203, 215, and 38. ASSESSMENT AND PLAN: 1. Improving. He has gone through alcohol withdrawal and delirium tremens. Status is improving and feels a little stronger. 2. Diabetes mellitus type 2. We need to stop his insulin. I am not sure if he has true diabetes or this was just induced from drinking. 3. History of withdrawal seizures. 4. General weakness and deconditioning. Hope to get him home tomorrow. We will discuss with family. He is on normal saline 75 mL an hour, Protonix 40 mg a day, clonidine patch 1 every 7 days, multivitamin daily.
[2017-01-01] MEDS: ATIVAN IV PRN ×2 (01:21→02:51)
[2017-01-01] MEDS: LOVENOX SUBQ SCH (01:21)
[2017-01-01] MEDS: NS 1,000 ML IV SCH (02:51)
[2017-01-01] MEDS: HUMALOG SUBQ SCH (06:47)
[2017-01-01] MEDS: PROTONIX PO SCH (06:47)
[2017-01-01] MEDS: THERA M PLUS PO SCH (08:29)
[2017-01-01] MEDS ORDERED: FLUZONE QUAD 2016-2017 SYRINGE IM ONE (11:35)
[2017-01-01 11:59] VITALS: BP 152/96
--- NOTE | 2017-01-02 09:49 | DISCHARGE SUMMARY ---
ADMISSION DATE: 12/24/2016 DISCHARGE DATE: 01/01/2017 HOSPITAL COURSE: This is a 56-year-old who came in with altered mental status, slurred speech. He has a history of alcohol dependence with a long history, history of hypertension, uncontrolled diabetes mellitus, and marijuana use, history of alcohol withdrawal seizures in the past. Patient presented to the emergency room at approximately 8:30 in the evening on 12/24/2016 after family called EMS and reported patient had altered mental status and slurred speech. Reported attempting to get out of a chair and fell forward, stumbled around, and fell, though they denied any loss of consciousness, any seizures on the scene. Patient was most recently admitted to [facility] 12/07/2016 for alcoholic pancreatitis and hyperglycemia. He decided to leave against medical advice at that time. Upon representation to the ER, patient was found to be lethargic and only responding to painful stimuli. He had nonreactive pupils and fixed deviated gaze on the right. During the patient's CT of the head and C-spine, he did have reported 8 minute long seizure, though there was only 1 episode of this. Patient was given a total of 6 mg of Ativan at this time. Laboratory results showed a serum glucose of 876, bicarb was 28, anion gap was 13. Patient's blood gases showed a pH of 7.4, pCO2 46, bicarb on the blood gas was 30. CT of the head and C-spine without contrast showed no acute intracranial abnormalities, only noticed some chronic micro-ischemic changes. No real change. Patient admitted and was put in the unit. He showed steady progress but did go into delirium tremens with confusion, hallucination, and agitation. Required restraint. We put him on an Ativan drip. He steadily improved and able to stop the Ativan drip. He was alert and oriented and cooperative. Dr. Eastman did follow as well. I saw him on 12/25/2016 with apparent seizure disorder. I suspect it was a generalized seizure and suspect related to alcohol withdrawal. Focal findings suggested possible slight left hemiparesis but this resolved quickly. He was able to eat and able to ambulate. He wanted to go home so felt like we could send him home on 01/01/2017. He was not on any home medications when he came in. DISCHARGE MEDICATIONS: We will discharge him home really on no medication. DISCHARGE INSTRUCTIONS: He is to find primary care and to follow up. We will put him on a blood pressure medicine called lisinopril 10 mg a day.
== END 2017-01-01 12:42 | disposition home or self-care (01) | DRG 897 ==
LOC: ED 20:29 → EDIPHOLD 23:58 → ICU 12-25 12:27 → 4N 12-29 20:08
PROVIDERS: ATTEND Emergency Medicine
DX: F10.231 Alcohol dependence with withdrawal delirium (principal); E11.649 Type 2 diabetes mellitus with hypoglycemia without coma; E11.65 Type 2 diabetes mellitus with hyperglycemia; I10 Essential (primary) hypertension; F17.220 Nicotine dependence, chewing tobacco, uncomplicated; E86.9 Volume depletion, unspecified; F12.20 Cannabis dependence, uncomplicated
CPT/HCPCS: 51702; 70450; 70548; 70551; 71010; 72125; 80048; 80053; 80061; 81001; 82150; 82550; 82607; 82746; 82805; 82948; 83036; 83605; 83690; 83721; 83735; 83930; 84100; 84436; 84443; 84484; 85025; 85610; 85730; 87040; 87324; 87449; 92523; 93005; 93306; 94762; 95816; 96365; 96366; 96367; 96368; 96372; 96375; 96376; A9579; C9113; G0480; J1650; J1815; J2060; J2405; J3411; J3475; J3480; J7030; J7050; 80320; 80324; 80345; 80346; 80349; 80353; 80358; 80361; 80365; 83992; 92610-GN; 97530-GP; S0164

== ENCOUNTER 2017-01-25 09:44 | Inpatient (IN) ==
--- NOTE | 2017-01-25 10:41 | PROVIDER DOCUMENTATION ---
HPI-General Adult - General Chief Complaint: Edema Stated Complaint: ELEVATED SUGAR/FLUID RETENTION Time Seen by Provider: 01/25/17 09:58 Source: patient Allergies/Adverse Reactions: Patient Allergies Allergy/AdvReac Type Severity Reaction Status Date / Time No Known Allergies Allergy Verified 01/25/17 10:16 Home Medications: Home Medication List Medication Instructions Recorded Confirmed Last Taken Type Lisinopril 10 mg PO DAILY #30 tablet 01/01/17 Unknown Rx - History of Present Illness -Gen Adult Nature of Presenting Problems: Pt. is 56 yom that presents with c/o swelling in his legs and abdomen. Pt. reports he was recently discharged from [facility] after admission for hyperglycemia about a month ago. Pt. states he takes insulin and other medications but states some of them he hasn't had filled yet. Pt. denies any SOB, N/V or other symptoms at time of exam. Location of Pain/Injury: reports: none. denies: head, face, mouth, neck, chest , upper extremity, hand(s), abdomen, back, pelvis, genitalia, lower extremity, feet, upper body, lower body, generalized Pain Radiation: reports: no radiation Quality of Pain: reports: none. denies: aching, burning, cramping, dull, fullness, indigestion, pressure, sharp, stabbing, tearing, throbbing, tightness Severity: reports: mild. denies: moderate, severe Onset/Duration: reports: gradual, other (One month) Timing: reports: still present. denies: improving, gone now, resolved prior to arrival, intermittent, constant, changing over time, getting worse Context/Activities at Onset: reports: none. denies: recent emotional stress, recent physical stress, recent trauma history, possible bad food, cold exposure , out of country travel Modifying Factors: improves with: nothing Associated Symptoms: reports: malaise, other (edema). denies: anxiety, arm pain , back/neck pain, chest pain, constipation, cough, diaphoresis, diarrhea, dizziness, EENT symptoms, fatigue, fever/chills, genitourinary problems, headaches, heartburn, joint pain, loss of appetite, muscle aches, sinus congestion/drainage, nausea, rash, seizure, shortness of breath, sensory/motor loss, pain with inspiration, swelling/mass in abdomen, syncope, vomiting, weakness, trouble walking Similar Symptoms Previously?: Yes Recently seen or treated by another doctor?: Yes Review of Systems - Adult - REVIEW OF SYSTEMS - ADULT Constitutional: reports: see HPI. denies: chills, fever, fatique Eyes: reports: see HPI. denies: discharge, blurred vision, double vision Ears, Nose, Mouth & Throat: reports: see HPI. denies: ear pain, hearing loss, sinus problem, mouth/dental pain, throat swelling Cardiovascular: reports: see HPI, edema. denies: chest pain, irregular heart rate, palpitations, syncope Respiratory: reports: see HPI. denies: cough, dyspnea on exertion, pleurisy, shortness of breath, wheezing Gastrointestinal: reports: see HPI. denies: abdominal pain, hematemesis, diarrhea, nausea, vomiting Genitourinary: reports: see HPI. denies: dysuria, hematuria, hesitency, urgency Musculoskeletal: reports: see HPI. denies: bone pain, joint pain, muscle aches , neck pain Integumentary: reports: see HPI. denies: hives, itching, rash, skin thickening Neurological: reports: see HPI. denies: ataxia, headache/migraines, numbness, seizure, tremors Psychiatric: reports: see HPI. denies: anxiety, depression, emotional problems , insomnia, panic attacks, suicidal thoughts Past History - Adult - PAST MEDICAL HISTORY-ADULT Review of Records: reports: Old Records Reviewed, Nursing Assessment Review, Medications Reviewed, Social history reviewed & non-contributory. Cardiovascular: reports: HTN Respiratory: reports: COPD Gastrointestinal: reports: GERD Neurological: reports: Seizures/Epilepsy Psychiatric: reports: anxiety Endocrine/Immune: reports: Diabetes - PRIOR SURGERIES/PROCEDURES Surgical/Procedure History: reports: cholecystectomy, other (stent placed in pancrease in february 2014) - IMMUNIZATION STATUS Childhood Immunizations: See Nurse Assessment Flu Vaccine: See Nurse Assessment - FAMILY HISTORY Family History: reviewed, not pertinent - SOCIAL HISTORY Smoking: denies Physical Exam-General - PHYSICAL EXAM-ADULT Initial Vital Signs Reviewed: Yes - CONSTITUTIONAL General Appearance: alert, mild distress. negative: anxious, lethargic, slow to respond, obtunded, combative - EYES Eyes: PERRL/EOMI, pink conjunctivae. negative: conjuctival exudate, scleral icterus, subconjunctival hemorrhage - HEAD, EARS, NOSE, MOUTH & THROAT HENMT: normocephalic/atraumatic, moist mucous membranes. negative: angioedema, frontal tenderness, maxillary tenderness - NECK Neck: non-tender, full range of motion, supple, normal inspection. negative: lymphadenopathy, trachial deviation, thyromegaly - RESPIRATORY Respiratory: lungs clear, normal breath sounds. negative: crackles, rales, rhonchi, stridor, wheezing - CARDIOVASCULAR Cardiovascular: normal peripheral pulses, regular rate, rhythm, no edema, no JVD , no murmur. negative: extra beats, friction rub, irregularly irregular - GASTROINTESTINAL (ABDOMEN) Abdominal Exam: normal bowel sounds, non tender, soft. negative: distended, guarding, rigid, rebound, tenderness, hernia, mass - LYMPHATIC Lymphatic: no adenopathy. negative: axilla node tender, cervical node tenderness - MUSCULOSKELETAL Back Exam: normal inspection, swelling. negative: no CVA tenderness, no vertebral tenderness, ecchymosis, vertebral tenderness Extremity: normal range of motion, pedal edema, swelling. negative: normal inspection, deformity, erythema, inflammation, tenderness Peripheral Pulses: radial (R): 2+, radial (L): 2+ - SKIN Integumentary: normal color, normal turgor, warm/dry. negative: cyanosis, diaphoresis, ecchymosis, erythema, jaundice, mottled, pallor, petechiae, purpura , rash, swelling, tenderness - NEUROLOGIC Neurologic: grossly normal, no motor/sensory deficits. negative: aphasia, facial droop, focal weakness, motor weakness, sensory deficit - PSYCHIATRIC Psych/Mental Status: normal mood/affect, normal thought content, normal thought process, oriented x 3. negative: anxious, paranoid, tearful Progress - PLAN OF CARE/RESULTS Progress/Plan/Lab Results: Vital Signs - 8 hr 01/25/17 09:47 Temperature 97.3 F L Pulse Rate 98 H Respiratory Rate 20 Blood Pressure 153/92 O2 Sat by Pulse Oximetry 100 Orders Category Date Time Status FSBS [Finger Stick Blood Sugar (ED)] DIRECTED Care 01/25/17 10:10 Active Saline Loc NOW Care 01/25/17 10:10 Active CHEST-2 VIEWS [RAD] Stat Exams 01/25/17 10:11 Ordered ACETONE SERUM [CHEM] Stat Lab 01/25/17 10:11 Uncollected CBC WITH ELECTRONIC DIFF [HEME] Stat Lab 01/25/17 10:10 Uncollected CK PROFILE [SP CHEM] Stat Lab 01/25/17 10:10 Uncollected COMPREHENSIVE METABOLIC PANEL [CHEM] Stat Lab 01/25/17 10:11 Uncollected PRO B-NATRIURETIC PEPTIDE Stat Lab 01/25/17 10:11 Uncollected TROPONIN T Stat Lab 01/25/17 10:11 Uncollected URINALYSIS W/POSS RFLX CULT [URINALYSIS] Stat Lab 01/25/17 10:11 Uncollected EKG [EKG] Stat Ther 01/25/17 10:10 Ordered Result Diagrams: 01/25/17 12:05 01/25/17 12:05 - CONSULTS/PCP/HOSPITALIST Notification #1 *Consult/PCP/Hospitalist*: Dr. Chu Time Discussed: 16:31 Reason/Comments: Admission Consult Disposition: Will see in ED, Admit Departure - Departure Time of Disposition Decision: 15:29 DIAGNOSIS: Poorly controlled diabetes mellitus, Abnormal laboratory test Edema Qualifiers: Edema type: unspecified Qualified Code(s): R60.9 - Edema, unspecified Disposition: ADMITTED INPATIENT 09 Certified Medical Emergency: Emergent Condition: Stable Referrals and Follow-Ups: None,PCP [Primary Care Provider] - Attestation - Physician/ SUZANNE Attestation Patient care was provided by Advanced Practice Provider:: Yes Advanced Practice Provider:: Eliezer Hoang Advanced Practice Provider documentation review:: The Mid-level provider documentation, treatment plan and medical decision making was reviewed by the physician who agrees with all treatment and medical decision making by the P.
[2017-01-25 11:36] LABS: URINE MICRO REVIEW NEEDED? NO; URINE SOURCE CLEAN CATCH
[2017-01-25 11:41] LABS: BILIRUBIN URINE NEGATIVE (NEGATIVE); BLOOD URINE MODERATE (NEGATIVE); COLOR YELLOW; GLUCOSE URINE >1000 mg/dL (NEGATIVE); LEUKOCYTES URINE MODERATE (NEGATIVE); NITRITE URINE POSITIVE (NEGATIVE); PH URINE 6.5; PROTEIN URINE 300 mg/dL (NEGATIVE); SP GRAVITY URINE 1.023; TURBIDITY URINE CLEAR (CLEAR); UR EPITHELIAL CELLS <10 /HPF (<10); URINE BACTERIA 4+ /HPF; URINE CULTURE NEEDED? YES; URINE RBC TNTC /HPF (<10); URINE WBC TNTC /HPF (<10); UROBILINOGEN URINE NORMAL (NORMAL)
[2017-01-25] MEDS ORDERED: ROCEPHIN 1 GM/NS 1 GM/50 ML IVPB IV ONE (11:49)
[2017-01-25 12:09] LABS: MANUAL DIFF NEEDED? NO
[2017-01-25 12:11] LABS: BASO% 0.6 % (0.0-0.8); EOS% 2.9 % (0.0-10.0); HEMATOCRIT 29.7 % (42.0-52.0); LYMPH% 29.2 % (20.5-51.1); MCH 29.3 PG (27-31); MCHC 33.7 g/dL (33-37); MCV 87.1 FL (81-99); MONO# 0.47 X1000 (0.11-0.59); MONO% 6.9 % (1.7-9.3); MPV 10.9 FL (7.4-10.4); NEUT% 60.4 % (42.2-75.2); PLT 280 X1000 (130-400); RBC 3.41 XMIL (4.7-6.1)
--- NOTE | 2017-01-25 12:18 | Diag Imaging Result Document ---
PROCEDURE NAME: CHEST-2 VIEWS - 01/25/2017 CHEST X-RAY, 2 VIEWS: COMPARISON: 12/26/2016. FINDINGS: There are small bilateral pleural effusions. There is some hazy infiltrate in the right lung base. The heart size is borderline enlarged and has clearly enlarged significantly since 12/07/2016. IMPRESSION: 1. Increasing cardiomegaly. 2. Right basilar infiltrate. 3. Small pleural effusions.
[2017-01-25 12:40] LABS: ACETONE SERUM SMALL (NEGATIVE)
[2017-01-25 12:49] LABS: AGAP 13; ALKALINE PHOSPHATASE 82 U/L (32-122); BUN 5 mg/dL (8-22); CALCIUM 8.4 mg/dL (8.8-10.2); CHLORIDE 99 mmol/L (98-107); CK PROFILE 70 U/L (24-204); COSMO 285; GOT 12 U/L (10-34); GPT 5 U/L (10-44); POTASSIUM 3.3 mmol/L (3.5-5.1); SODIUM 138 mmol/L (136-145); TCO2 26 mmol/L (25-35); TOTAL BILIRUBIN 0.32 mg/dL (0.20-1.00); TOTAL PROTEIN 6.4 g/dL (6.3-8.3)
[2017-01-25] MEDS ORDERED: HUMULIN R IV ONE (13:01)
[2017-01-25] MEDS ORDERED: NS 1,000 ML IV ONE (13:01)
[2017-01-25 13:34] LABS: ALLEN TEST YES; BE 5.4 mmoll (-3.0-3.0); BLOOD TYPE ARTERIAL; DRAW SITE R RADIAL; METHB 1.4 % (0.0-1.5); O2(CT) 11.6 mL/dL (15.0-23.0); PCO2(98.6) 37 mmHg (35-45); PO2(98.6) 86 mmHg (60-100); SAMPLE BLOOD; SAO2 98.8 % (95.0-100.0); THB 8.7 g/dL (11.5-17.4)
[2017-01-25 13:35] LABS: MODALITY ROOM AIR
--- NOTE | 2017-01-25 16:55 | HISTORY AND PHYSICAL ---
HISTORY OF PRESENT ILLNESS: He comes in stating that for the last week or so he has noticed more swelling in his arms and his legs and his belly. Denies any chest pain, fever or chills. PAST MEDICAL HISTORY: He states he has diabetes. He says he has a stent that has been placed in his pancreas. He was told he has diabetes when he was in [facility]. He has no personal physician. He does not go to see his doctor. I did notice that he was in the hospital in December of this year, December 25. At that time he came with altered mental status, slurred speech. He has a history of alcohol dependence. He says he quit in October. History of hypertension, uncontrolled diabetes mellitus, marijuana abuse and history of alcohol withdrawal seizures in the past. Presented last time to the emergency room with altered mental status. OTHER PAST MEDICAL HISTORY: Gleaned from the old chart, alcoholic pancreatitis, history of previous alcohol withdrawal seizures. PAST SURGICAL HISTORY: 1. Cholecystectomy. 2. Pancreatic duct stent placement in the past. SOCIAL HISTORY: He lives with his brother. He denies drinking alcohol. Before that, he said he drank about 4 beers a night and does not admit to any substance abuse, including marijuana. FAMILY HISTORY: He does not give any. PERTINENT HISTORY: Per family members, I note the echocardiogram that was done on 12/25/2016. Aortic mitral, tricuspid and pulmonic valves without any evidence of structural abnormality. Trace mitral regurgitation. Estimated PA pressure about 37 mmHg. Normal left ventricular dimension. Estimated left ventricular ejection fraction appears to be about 60 to 70%. No regional wall motion abnormalities. Doppler suggests normal left ventricular diastolic dysfunction. No pericardial effusion. The appearance of vena cava appears to have normal central venous pressure. So trace tricuspid regurgitation, mild pulmonic hypertension. Normal left ventricular function. Mild left atrial enlargement. He has had a brain MRI and a neck MRA without any abnormalities. He has some calcifications primarily in the dentate nuclei bilaterally. 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 He had an MRA of his neck back in December and no acute disease. REVIEW OF SYSTEMS: General: He denies weight gain or loss. No fever or chills. HEENT: Unremarkable. Respiratory: No increased work of breathing or dyspnea, but he does state if he lays in the bed too long, he seems a little more short of breath. Hematologic: No significant complaints or reports. He had an EEG me back in 12/25/2016 did show a typical benzodiazepine effect, absence of epileptiform discharges on a single electrocardiogram. Did not exclude a diagnosis seizures, but there was no seizure activity. PHYSICAL EXAMINATION: GENERAL: Today, awake, alert, pleasant, oriented x3. VITAL SIGNS: Temperature 97.3 degrees, pulse 99, respirations 18, blood pressure 171/97. HEENT: Pupils are equal and round. CVP less than 6 cm. No distended neck veins. LUNGS: Clear in all lung condon. CARDIOVASCULAR: Regular rhythm and rate without murmur or S3. ABDOMEN: Soft. SKIN: Warm and dry. HEIGHT: 5 feet 1 inch. LABORATORY/DIAGNOSTICS: White count 6850, hematocrit 29, platelet count 280,000. Sodium 138, potassium 3.3, chloride 99, BUN 5. Creatinine 0.6, blood sugar 3815. Calcium is 8.4. Osmolality 285. Liver functions, AST and ALT unremarkable. ProBNP was 8804, albumin 2. Urine showed greater than 1000 blood sugars, too numerous to count white blood cells, and red blood cells, 4+ bacteria. His creatinine is 0.6. Chest x-ray: Increasing cardiomegaly, right basilar infiltrate, small pleural effusion. ASSESSMENT AND PLAN: 1. He has subjective swelling in his hands and his belly and his feet. He has had a recent echo that shows essentially normal left ventricular function. I think we have no choice but to try to probably repeat that echocardiogram. I do not see any evidence of liver dysfunction and do not see any evidence of renal dysfunction right now, although he does have a fair amount of sediment in his urine. 2. Too numerous to count white blood cells and red blood cells in the urine. We will check an ultrasound of his kidneys and collection system. We will give him some normal saline. 3. History of alcohol. He claims he has not drank since October, but there is a possibility for alcohol withdrawal. I think we probably ought to do a urine drug screen and just check an ethanol level and be prepared for symptoms of alcohol withdrawal or even delirium tremens. 4. Diabetes mellitus which is obviously under poor control. We will get pattern sugars and this may also explain why he is having the swelling. His blood sugar was 315. We will supplement some potassium. Also check his magnesium level. cc: Viktor Chu MD
[2017-01-25] MEDS ORDERED: ZOFRAN IV PRN (18:08)
[2017-01-25] MEDS ORDERED: TYLENOL PO PRN (18:08)
[2017-01-25] MEDS ORDERED: ROCEPHIN 1 GM/NS 1 GM/50 ML IVPB IV SCH (18:08)
[2017-01-25] MEDS: NS + KCL 20 MEQ 1,000 ML IV SCH (18:50)
[2017-01-25 21:04] LABS: UR AMPHETAMINES QUAL NONE DETECTED (NONE DETECT); UR BARBITUATES QUAL NONE DETECTED (NONE DETECT); UR BENZODIAZEPIN QUAL NONE DETECTED (NONE DETECT); UR CANNABINOIDS QUAL PRESUMPTIVE POSITIVE (NONE DETECT); UR COCAINE QUAL NONE DETECTED (NONE DETECT); UR METHADONE QUAL NONE DETECTED (NONE DETECT); UR OPIATES QUAL NONE DETECTED (NONE DETECT); UR OXYCODONE QUAL NONE DETECTED (NONE DETECT); UR PCP QUAL NONE DETECTED (NONE DETECT)
[2017-01-25] MEDS: HUMULIN R SUBQ SCH (21:35)
[2017-01-26] MEDS: NS + KCL 20 MEQ 1,000 ML IV SCH (05:53)
[2017-01-26 06:10] LABS: MANUAL DIFF NEEDED? NO
[2017-01-26] MEDS: HUMULIN R SUBQ SCH ×2 (06:24→11:42)
[2017-01-26 06:30] LABS: BASO% 0.7 % (0.0-0.8); EOS# 0.18 X1000 (0.0-0.7); EOS% 3.3 % (0.0-10.0); HEMATOCRIT 26.7 % (42.0-52.0); HEMOGLOBIN 8.9 g/dL (14.0-18.0); LYMPH# 1.73 X1000 (1.2-3.4); LYMPH% 31.6 % (20.5-51.1); MCH 29.2 PG (27-31); MCHC 33.3 g/dL (33-37); MCV 87.5 FL (81-99); MONO# 0.35 X1000 (0.11-0.59); MONO% 6.4 % (1.7-9.3); MPV 11.1 FL (7.4-10.4); PLT 270 X1000 (130-400); RBC 3.05 XMIL (4.7-6.1)
[2017-01-26 06:32] LABS: INR 0.97; PROTIME 10.2 Seconds (9.2-11.7); PTT 25.9 Seconds (22.0-36.0)
--- NOTE | 2017-01-26 06:38 | EKG Report ---
Test Performed on : 01/26/2017 06:12:37 AM Test Reason : chest pain Blood Pressure : / mmHG Vent. Rate : 097 BPM Atrial Rate : 097 BPM P-R Int : 136 ms QRS Dur : 076 ms QT Int : 390 ms P-R-T Axes : 049 026 091 degrees QTc Int : 495 ms Normal sinus rhythm. Nonspecific T wave abnormality Prolonged QT Abnormal ECG When compared with ECG of 24-DEC-2016 21:07, No significant change was found Confirmed by Giselle CALDERON, Christiano Vásquez ([id number]) on 01/26/2017 9:53:34 PM
[2017-01-26 06:41] LABS: AGAP 14; ALBUMIN 1.8 g/dL (3.5-5.0); ALKALINE PHOSPHATASE 72 U/L (32-122); BUN 6 mg/dL (8-22); CALCIUM 7.7 mg/dL (8.8-10.2); CHLORIDE 103 mmol/L (98-107); COSMO 286; GOT 11 U/L (10-34); GPT 5 U/L (10-44); MAGNESIUM 1.9 mg/dL (1.5-2.7); POTASSIUM 3.6 mmol/L (3.5-5.1); SODIUM 141 mmol/L (136-145); TCO2 24 mmol/L (25-35); TOTAL BILIRUBIN 0.21 mg/dL (0.20-1.00)
[2017-01-26 06:45] LABS: FREE T4 0.97 ng/dL (0.93-1.70)
--- NOTE | 2017-01-26 08:32 | Diag Imaging Result Document ---
PROCEDURE NAME: CHEST-2 VIEWS - 01/26/2017 TWO VIEWS OF THE CHEST: FINDINGS: There are bilateral pleural effusions. There are ill-defined opacities present in the lung bases bilaterally. This was also the case on 01/25/2017. IMPRESSION: Bilateral lower lobe pneumonia versus pulmonary edema. Pleural effusions.
[2017-01-26] MEDS ORDERED: PRINIVIL PO SCH (09:00)
--- NOTE | 2017-01-26 09:54 | DISCHARGE SUMMARY ---
ADMISSION DATE: 01/25/2017 DISCHARGE DATE: 01/26/2017 HOSPITAL COURSE: He came in last week with complaints. Last week he noted a little more swelling in his legs and hands. He feels better today. He does have diabetes, and he has a stent placed in his pancreas, a history of alcoholism in the past. He has had a recent echocardiogram which was unremarkable with good left ventricular function. He is status post cholecystectomy and pancreatic stent. He feels much better this morning. I do not see any significant hepatic or renal dysfunction. He has bilateral lower lobe pneumonia versus pulmonary edema and clinically is more consistent with a little bit of pulmonary edema. His EKG looked good. Nonspecific T-wave abnormality. There was normal sinus rhythm. Chest x-ray from yesterday: Increasing cardiomegaly, right basilar infiltrate, small pleural effusions. Chest x-ray repeated today: Bilateral lower lobe pneumonia versus pulmonary edema. Clinically, he is better. He is really wanting to go home. Plan to see if we can line him up to get a primary care. I will let him go home on some Levaquin 500 mg daily for another 7 days. He is not on any other medications. cc: Viktor Chu MD
[2017-01-26 11:21] VITALS: BP 150/95
== END 2017-01-26 12:29 | disposition home or self-care (01) ==
LOC: ED 09:44 → SUATTDRO 16:56 → 4N 16:56
PROVIDERS: ATTEND Emergency Medicine